=== PATIENT | female | born 1940 | race Caucasian/White ===

== ENCOUNTER 2016-09-29 21:18 | Inpatient (IN) | payer MEDICARE, OTHER ==
[~2016-09-29] VITALS: Ht 152.4 cm; Wt 83.9 kg
[~2016-09-29 21:18] MED LIST: ASPI-1063 PO; BENA40TA65 PO; GLIP2.5T3 PO; HYDR25TA4 PO; METO-442 PO; OMEP40CA33 PO; PIOG30TA26 PO; ROSU10TA PO; ROSU20TA PO; SITA50TA3 PO
[2016-09-29 21:58] VITALS: BP 157/85; PULSE 88; RESP 16; TEMP 97.2; O2SAT 95
[2016-09-29] MEDS ORDERED: NACL 0.9% 1,000 ML IV ONE (21:59)
[2016-09-29 22:12] LABS: BASOPHILS % (AUTO) 0.3 % (0.0-2.0); EOSINOPHILS # (AUTO) 0.4 K/uL (0.0-0.4); EOSINOPHILS % (AUTO) 3.8 % (0.0-4.0); HEMATOCRIT 25.7 % (36-48); HEMOGLOBIN 8.5 g/dL (12.0-16.0); LYMPHOCYTES # (AUTO) 1.8 K/uL (1.0-5.5); LYMPHOCYTES % (AUTO) 16.7 % (20.5-51.5); MEAN CORPUSCULAR HEMOGLOBIN 31 pg (27-31); MEAN CORPUSCULAR HGB CONC 33 % (32-36); MEAN CORPUSCULAR VOLUME 93 fL (79.0-98.0); MONOCYTES # (AUTO) 0.9 K/uL (0.0-1.0); MONOCYTES % (AUTO) 7.9 % (1.7-9.3); NEUTROPHILS # (AUTO) 7.8 K/uL (1.8-7.7); NEUTROPHILS % (AUTO) 71.3 % (40.0-70.0); PLATELET COUNT (AUTO) 237 K/uL (130-430); RED BLOOD CELL COUNT(AUTO) 2.78 MIL/uL (4.2-6.2); RED CELL DISTRIBUTION WIDTH 14.6 % (9.0-15.0); WHITE BLOOD COUNT (AUTO) 10.9 K/uL (4.8-10.8)
[2016-09-29 22:59] LABS: ANION GAP 8 (5-15); CALCIUM 8.5 mg/dL (8.4-11.0); CHLORIDE 107 mmol/L (98-107); GLUCOSE 108 mg/dL (70-99); POTASSIUM 4.1 mmol/L (3.5-5.1); SODIUM SERUM 140 mmol/L (136-145)
[2016-09-29 23:00] LABS: ALANINE AMINOTRANSFERASE 183 U/L (12-78); ALBUMIN 2.7 g/dL (3.4-4.8); ASPARTATE AMINOTRANSFERASE 56 U/L (10-37); CREATININE 1.77 mg/dL (0.55-1.30); TOTAL BILIRUBIN 0.5 mg/dL (0.0-1.0); TOTAL PROTEIN, SERUM 6.8 g/dL (6.4-8.3); UREA NITROGEN, BLOOD 23 mg/dL (8-21)
[2016-09-29] MEDS ORDERED: IPRATROPIUM/ALBUTEROL SULFATE 3 ML AMPUL.NEB INH ONE (23:00)
[2016-09-29 23:01] LABS: AMYLASE 183 U/L (0-100)
[2016-09-29 23:06] LABS: LIPASE 3205 U/L (73-393)
[2016-09-30] VITALS (7 sets, daily range): BP systolic 139–151; BP diastolic 52–80; PULSE 72–82; RESP 11–19; TEMP 97.4–98.6; O2SAT 94–99
[2016-09-30] MEDS ORDERED: ALBUTEROL SULFATE 0.083% 2.5 MG/3 ML VIAL.NEB INH PRN (00:15)
[2016-09-30] MEDS ORDERED: FUROSEMIDE 40 MG/4 ML VIAL IVP ONE (00:15)
[2016-09-30 07:11] LABS: BASOPHILS % (AUTO) 0.4 % (0.0-2.0); EOSINOPHILS # (AUTO) 0.4 K/uL (0.0-0.4); EOSINOPHILS % (AUTO) 3.9 % (0.0-4.0); HEMATOCRIT 24.1 % (36-48); HEMOGLOBIN 8.1 g/dL (12.0-16.0); LYMPHOCYTES # (AUTO) 1.8 K/uL (1.0-5.5); LYMPHOCYTES % (AUTO) 17.6 % (20.5-51.5); MEAN CORPUSCULAR HEMOGLOBIN 31 pg (27-31); MEAN CORPUSCULAR HGB CONC 34 % (32-36); MEAN CORPUSCULAR VOLUME 93 fL (79.0-98.0); MONOCYTES # (AUTO) 0.9 K/uL (0.0-1.0); NEUTROPHILS # (AUTO) 6.9 K/uL (1.8-7.7); NEUTROPHILS % (AUTO) 69.1 % (40.0-70.0); PLATELET COUNT (AUTO) 219 K/uL (130-430); RED CELL DISTRIBUTION WIDTH 14.7 % (9.0-15.0)
[2016-09-30 07:45] LABS: ANION GAP 7 (5-15); CALCIUM 8.6 mg/dL (8.4-11.0); CHLORIDE 107 mmol/L (98-107); CREATININE 1.57 mg/dL (0.55-1.30); GLUCOSE 109 mg/dL (70-99); POTASSIUM 3.9 mmol/L (3.5-5.1); SODIUM SERUM 140 mmol/L (136-145); UREA NITROGEN, BLOOD 22 mg/dL (8-21)
[2016-09-30] MEDS: CARVEDILOL 6.25 MG TABLET (COREG) PO SCH ×2 (08:50→21:55)
[2016-09-30] MEDS: FUROSEMIDE 20 MG/2 ML VIAL IVP SCH ×2 (08:51→21:56)
[2016-09-30] MEDS ORDERED: BENAZEPRIL HCL 10 MG TABLET (LOTENSIN) PO ONE (10:45)
[2016-09-30] MEDS: INSULIN REGULAR, HUMAN 100 UNITS/ML, 10 ML VIAL (novoLIN R) SUBCUT PRN (11:39)
[2016-09-30] MEDS ORDERED: LEVOFLOXACIN 500 MG/D5W 100 ML IV ONE (17:00)
[2016-09-30] MEDS ORDERED: ATORVASTATIN 20 MG TABLET PO ONE (17:15)
[2016-09-30] MEDS: cefTRIAXone 1 GM in D5W 50 ML IV SCH (19:25)
[2016-09-30] MEDS ORDERED: ROSUVASTATIN CALCIUM 5 MG/TAB (CRESTOR) PO SCH ×2 (21:00)
[2016-10-01] VITALS (7 sets, daily range): BP systolic 135–159; BP diastolic 63–78; PULSE 69–85; RESP 16–21; TEMP 96.8–98.6; O2SAT 94–96
[2016-10-01 06:41] LABS: BASOPHILS % (AUTO) 0.3 % (0.0-2.0); EOSINOPHILS # (AUTO) 0.4 K/uL (0.0-0.4); EOSINOPHILS % (AUTO) 3.4 % (0.0-4.0); HEMATOCRIT 25.5 % (36-48); HEMOGLOBIN 8.5 g/dL (12.0-16.0); LYMPHOCYTES # (AUTO) 2.2 K/uL (1.0-5.5); LYMPHOCYTES % (AUTO) 18.3 % (20.5-51.5); MEAN CORPUSCULAR HEMOGLOBIN 30 pg (27-31); MEAN CORPUSCULAR HGB CONC 33 % (32-36); MEAN CORPUSCULAR VOLUME 91 fL (79.0-98.0); MONOCYTES # (AUTO) 0.7 K/uL (0.0-1.0); MONOCYTES % (AUTO) 6.1 % (1.7-9.3); NEUTROPHILS # (AUTO) 8.5 K/uL (1.8-7.7); NEUTROPHILS % (AUTO) 71.9 % (40.0-70.0); PLATELET COUNT (AUTO) 273 K/uL (130-430); RED BLOOD CELL COUNT(AUTO) 2.81 MIL/uL (4.2-6.2); RED CELL DISTRIBUTION WIDTH 14.4 % (9.0-15.0); WHITE BLOOD COUNT (AUTO) 11.8 K/uL (4.8-10.8)
[2016-10-01 07:12] LABS: ALANINE AMINOTRANSFERASE 123 U/L (12-78); ALBUMIN 2.6 g/dL (3.4-4.8); ANION GAP 8 (5-15); ASPARTATE AMINOTRANSFERASE 35 U/L (10-37); CALCIUM 8.6 mg/dL (8.4-11.0); CHLORIDE 104 mmol/L (98-107); CHOLESTEROL 170 mg/dL (<200); CREATININE 1.63 mg/dL (0.55-1.30); GLUCOSE 121 mg/dL (70-99); HDL CHOLESTEROL 32 mg/dL (>55); LDL CHOLESTEROL 118 mg/dL (<100); LIPASE 1169 U/L (73-393); POTASSIUM 3.4 mmol/L (3.5-5.1); SODIUM SERUM 139 mmol/L (136-145); THYROID STIMULATING HORMONE 1.88 uIu/mL (0.34-4.82); TOTAL BILIRUBIN 0.5 mg/dL (0.0-1.0); TOTAL PROTEIN, SERUM 6.8 g/dL (6.4-8.3); TRIGLYCERIDES 145 mg/dL (30-150); UREA NITROGEN, BLOOD 25 mg/dL (8-21)
[2016-10-01] MEDS: CARVEDILOL 6.25 MG TABLET (COREG) PO SCH ×2 (08:13→23:11)
[2016-10-01] MEDS: glipiZIDE XL 2.5 MG/TAB (GLUCOTROL XL) PO SCH (08:13)
[2016-10-01] MEDS: ASPIRIN 81 MG TABLET(ECOTRIN) PO SCH (08:13)
[2016-10-01] MEDS: OMEPRAZOLE 20 MG CAPSULE.DR (PriLOSEC) PO SCH (08:14)
[2016-10-01] MEDS: ATORVASTATIN 20 MG TABLET PO SCH (08:14)
[2016-10-01] MEDS: BENAZEPRIL HCL 20 MG TABLET (LOTENSIN) PO SCH (08:14)
[2016-10-01] MEDS: FUROSEMIDE 20 MG/2 ML VIAL IVP SCH ×2 (08:15→23:10)
[2016-10-01] MEDS ORDERED: BENAZEPRIL HCL 10 MG TABLET (LOTENSIN) PO SCH (09:00)
[2016-10-01] MEDS ORDERED: METOPROLOL TARTRATE 50 MG TABLET PO SCH (09:00)
[2016-10-01] MEDS: INSULIN REGULAR, HUMAN 100 UNITS/ML, 10 ML VIAL (novoLIN R) SUBCUT PRN (12:52)
[2016-10-01] MEDS ORDERED: DOCUSATE SODIUM 250 MG CAPSULE PO ONE (13:15)
[2016-10-01] MEDS ORDERED: BISACODYL 5 MG TABLET.DR (DULCOLAX) PO ONE (13:15)
[2016-10-01] MEDS ORDERED: POTASSIUM CHLORIDE 20 MEQ TAB.PRT.SR PO ONE (13:15)
[2016-10-01] MEDS: cefTRIAXone 1 GM in D5W 50 ML IV SCH (17:20)
[2016-10-01] MEDS: DOCUSATE SODIUM 250 MG CAPSULE PO SCH (23:10)
[2016-10-02 04:52] VITALS: BP 136/59; PULSE 75; RESP 18; TEMP 97.4; O2SAT 95
[2016-10-02 07:50] VITALS: BP 135/55; PULSE 72; RESP 16; TEMP 96.8; O2SAT 94
[2016-10-02] MEDS: BENAZEPRIL HCL 20 MG TABLET (LOTENSIN) PO SCH (09:01)
[2016-10-02] MEDS: FUROSEMIDE 20 MG/2 ML VIAL IVP SCH (09:01)
[2016-10-02] MEDS: ATORVASTATIN 20 MG TABLET PO SCH (09:02)
[2016-10-02] MEDS: ASPIRIN 81 MG TABLET(ECOTRIN) PO SCH (09:02)
[2016-10-02] MEDS: CARVEDILOL 6.25 MG TABLET (COREG) PO SCH ×2 (09:02→21:55)
[2016-10-02] MEDS: OMEPRAZOLE 20 MG CAPSULE.DR (PriLOSEC) PO SCH (09:02)
[2016-10-02] MEDS: glipiZIDE XL 2.5 MG/TAB (GLUCOTROL XL) PO SCH (09:03)
[2016-10-02] MEDS: DOCUSATE SODIUM 250 MG CAPSULE PO SCH ×2 (09:03→21:54)
[2016-10-02 12:50] VITALS: BP 147/87; PULSE 75; RESP 16; TEMP 97.6; O2SAT 96
[2016-10-02 15:41] VITALS: Ht 152.4 cm; Wt 83.9 kg
[2016-10-02 16:31] VITALS: BP 131/71; PULSE 68; RESP 16; TEMP 97.6; O2SAT 96
[2016-10-02 17:24] LABS: BASOPHILS # (AUTO) 0.1 K/uL (0.0-0.2); BASOPHILS % (AUTO) 1.3 % (0.0-2.0); EOSINOPHILS # (AUTO) 0.3 K/uL (0.0-0.4); EOSINOPHILS % (AUTO) 2.7 % (0.0-4.0); HEMATOCRIT 26.5 % (36-48); HEMOGLOBIN 8.6 g/dL (12.0-16.0); LYMPHOCYTES # (AUTO) 2.6 K/uL (1.0-5.5); LYMPHOCYTES % (AUTO) 23.7 % (20.5-51.5); MEAN CORPUSCULAR HEMOGLOBIN 30 pg (27-31); MEAN CORPUSCULAR HGB CONC 33 % (32-36); MEAN CORPUSCULAR VOLUME 92 fL (79.0-98.0); NEUTROPHILS # (AUTO) 7.1 K/uL (1.8-7.7); NEUTROPHILS % (AUTO) 63.3 % (40.0-70.0); PLATELET COUNT (AUTO) 324 K/uL (130-430); RED BLOOD CELL COUNT(AUTO) 2.87 MIL/uL (4.2-6.2); RED CELL DISTRIBUTION WIDTH 14.7 % (9.0-15.0); WHITE BLOOD COUNT (AUTO) 11.1 K/uL (4.8-10.8)
[2016-10-02 17:28] LABS: ANION GAP 8 (5-15); CALCIUM 8.2 mg/dL (8.4-11.0); CHLORIDE 106 mmol/L (98-107); GLUCOSE 122 mg/dL (70-99); POTASSIUM 4.3 mmol/L (3.5-5.1); SODIUM SERUM 141 mmol/L (136-145); UREA NITROGEN, BLOOD 39 mg/dL (8-21)
[2016-10-02 17:33] LABS: ALANINE AMINOTRANSFERASE 83 U/L (12-78); ALBUMIN 2.7 g/dL (3.4-4.8); ASPARTATE AMINOTRANSFERASE 25 U/L (10-37); LIPASE 2119 U/L (73-393); TOTAL BILIRUBIN 0.3 mg/dL (0.0-1.0); TOTAL PROTEIN, SERUM 6.9 g/dL (6.4-8.3)
[2016-10-02] MEDS: cefTRIAXone 1 GM in D5W 50 ML IV SCH (19:05)
[2016-10-02 20:37] VITALS: BP 132/68; PULSE 72; RESP 18; TEMP 97.5; O2SAT 95
[2016-10-02] MEDS: FUROSEMIDE 20 MG TABLET PO SCH (21:55)
[2016-10-02 23:42] VITALS: BP 128/52; PULSE 73; RESP 20; TEMP 97.8; O2SAT 96
[2016-10-03 03:44] VITALS: BP 144/93; PULSE 69; RESP 20; TEMP 97.8; O2SAT 96
[2016-10-03 08:28] LABS: ALANINE AMINOTRANSFERASE 74 U/L (12-78); ALBUMIN 2.8 g/dL (3.4-4.8); ANION GAP 10 (5-15); ASPARTATE AMINOTRANSFERASE 26 U/L (10-37); CALCIUM 8.4 mg/dL (8.4-11.0); CHLORIDE 106 mmol/L (98-107); CHOLESTEROL 154 mg/dL (<200); CREATININE 1.86 mg/dL (0.55-1.30); GLUCOSE 132 mg/dL (70-99); HDL CHOLESTEROL 31 mg/dL (>55); LDL CHOLESTEROL 98 mg/dL (<100); LIPASE 1630 U/L (73-393); POTASSIUM 4.1 mmol/L (3.5-5.1); SODIUM SERUM 141 mmol/L (136-145); TOTAL BILIRUBIN 0.3 mg/dL (0.0-1.0); TOTAL PROTEIN, SERUM 6.1 g/dL (6.4-8.3); TRIGLYCERIDES 157 mg/dL (30-150); UREA NITROGEN, BLOOD 40 mg/dL (8-21)
[2016-10-03] MEDS: glipiZIDE XL 2.5 MG/TAB (GLUCOTROL XL) PO SCH (09:17)
[2016-10-03] MEDS: DOCUSATE SODIUM 250 MG CAPSULE PO SCH (09:17)
[2016-10-03] MEDS: OMEPRAZOLE 20 MG CAPSULE.DR (PriLOSEC) PO SCH (09:17)
[2016-10-03] MEDS: BENAZEPRIL HCL 20 MG TABLET (LOTENSIN) PO SCH (09:18)
[2016-10-03] MEDS: ATORVASTATIN 20 MG TABLET PO SCH (09:18)
[2016-10-03] MEDS: CARVEDILOL 6.25 MG TABLET (COREG) PO SCH (09:19)
[2016-10-03] MEDS: FUROSEMIDE 20 MG TABLET PO SCH (09:20)
[2016-10-03 10:04] LABS: BASOPHILS # (AUTO) 0.2 K/uL (0.0-0.2); BASOPHILS % (AUTO) 1.4 % (0.0-2.0); EOSINOPHILS # (AUTO) 0.4 K/uL (0.0-0.4); EOSINOPHILS % (AUTO) 3.7 % (0.0-4.0); HEMOGLOBIN 9.1 g/dL (12.0-16.0); LYMPHOCYTES # (AUTO) 2.3 K/uL (1.0-5.5); LYMPHOCYTES % (AUTO) 21.1 % (20.5-51.5); MEAN CORPUSCULAR HEMOGLOBIN 30 pg (27-31); MEAN CORPUSCULAR HGB CONC 33 % (32-36); MEAN CORPUSCULAR VOLUME 93 fL (79.0-98.0); MONOCYTES # (AUTO) 0.5 K/uL (0.0-1.0); MONOCYTES % (AUTO) 4.9 % (1.7-9.3); NEUTROPHILS # (AUTO) 7.7 K/uL (1.8-7.7); NEUTROPHILS % (AUTO) 68.9 % (40.0-70.0); RED BLOOD CELL COUNT(AUTO) 3.01 MIL/uL (4.2-6.2); RED CELL DISTRIBUTION WIDTH 14.8 % (9.0-15.0); WHITE BLOOD COUNT (AUTO) 11.1 K/uL (4.8-10.8)
[2016-10-03 10:16] LABS: PLATELET COUNT (AUTO) 359 K/uL (130-430)
[2016-10-03] MEDS ORDERED: FURO-150 PO (11:42)
[2016-10-03 11:50] VITALS: BP 141/68; PULSE 70; RESP 16; TEMP 97.4; O2SAT 97
[2016-10-03] MEDS: INSULIN REGULAR, HUMAN 100 UNITS/ML, 10 ML VIAL (novoLIN R) SUBCUT PRN (11:54)
[2016-10-03 12:26] VITALS: BP 141/68; PULSE 70; RESP 16; TEMP 97.4; O2SAT 97
== END 2016-10-03 13:20 | disposition home health service (06) | DRG 144 ==
LOC: SED 21:18 → STU 09-30 00:01
PROVIDERS: ADMIT Internal Medicine; ATTEND Internal Medicine
DX: J20.9 Acute bronchitis, unspecified (principal); I50.33 Acute on chronic diastolic (congestive) heart failure; K85.90 Acute pancreatitis without necrosis or infection, unspecified; E44.0 Moderate protein-calorie malnutrition; N17.9 Acute kidney failure, unspecified; N18.4 Chronic kidney disease, stage 4 (severe); E11.21 Type 2 diabetes mellitus with diabetic nephropathy; D63.8 Anemia in other chronic diseases classified elsewhere; I13.0 Hypertensive heart and chronic kidney disease with heart failure and stage 1 through stage 4 chronic kidney disease, or unspecified chronic kidney disease; E11.22 Type 2 diabetes mellitus with diabetic chronic kidney disease; J45.901 Unspecified asthma with (acute) exacerbation; E78.5 Hyperlipidemia, unspecified; E66.9 Obesity, unspecified; E78.00 Pure hypercholesterolemia, unspecified; Z79.82 Long term (current) use of aspirin; Z68.36 Body mass index [BMI] 36.0-36.9, adult; Z79.899 Other long term (current) drug therapy; E87.6 Hypokalemia
CPT/HCPCS: 36415; 71010; 76705; 80048; 80053; 80061; 82150-TC; 82962; 83690-TC; 83880; 84443-TC; 84484; 85025; 85610-TC; 85730-TC; 87081; 92610-GN; 93005; 93306; 94640; 96360; 96361; 99285; J0696; J1815; J1940; J1956; J7030; J7050; J7060

== ENCOUNTER 2017-05-23 20:43 | Emergency (ER) | payer MEDICARE, OTHER ==
[~2017-05-23] VITALS: Ht 152.4 cm; Wt 80.7 kg
[~2017-05-23 20:43] MED LIST changes: +FURO-150 PO; -HYDR25TA4 PO; -PIOG30TA26 PO; -SITA50TA3 PO
[2017-05-23 20:57] VITALS: BP_SYST 160
[2017-05-23] MEDS ORDERED: MAG HYDROX/AL HYDROX/SIMETH 30 ML, BELLADONNA ALKALOIDS/PHENOBARB 10 ML, LIDOCAINE VISC... PO ONE ×6 (21:15)
[2017-05-23] MEDS ORDERED: ONDANSETRON HCL 4 MG/2 ML VIAL IVP ONE (21:15)
[2017-05-23] MEDS ORDERED: ASPIRIN 325 MG TABLET PO ONE (21:15)
[2017-05-23 21:22] LABS: BILIRUBIN,URINE NEGATIVE (NEGATIVE); CLARITY/URINE CLEAR (CLEAR); COLOR,URINE YELLOW (YELLOW); GLUCOSE,URINE NEGATIVE (NEGATIVE); KETONES,URINE NEGATIVE (NEGATIVE); LEUKOCYTE ESTERASE ,URINE NEGATIVE (NEGATIVE); NITRITE, URINE NEGATIVE (NEGATIVE); PROTEIN URINE 2+ (NEGATIVE); UROBILINOGEN,URINE 0.2 (0.2-1.0)
[2017-05-23 21:24] LABS: BLOOD, URINE TRACE (NEGATIVE)
[2017-05-23 21:34] LABS: BACTERIA,URINE RARE /HPF (None Seen); RBC,URINE NONE SEEN /HPF (0-3); WBC,URINE NONE SEEN /HPF (0-3)
[2017-05-23 21:36] LABS: MUCUS,URINE None Seen /LPF (None Seen); YEAST,URINE Few /HPF (None Seen)
[2017-05-23 21:56] LABS: ANION GAP 5 (5-15); CALCIUM 8.8 mg/dL (8.4-11.0); CHLORIDE 106 mmol/L (98-107); CREATININE 2.26 mg/dL (0.55-1.30); GLUCOSE 164 mg/dL (70-99); POTASSIUM 4.9 mmol/L (3.5-5.1); SODIUM SERUM 139 mmol/L (136-145); UREA NITROGEN, BLOOD 44 mg/dL (8-21)
[2017-05-23 22:00] LABS: ALBUMIN 3.2 g/dL (3.4-4.8); AMYLASE 63 U/L (0-100); ASPARTATE AMINOTRANSFERASE 15 U/L (10-37); LIPASE 223 U/L (73-393); PROTHROMBIN TIME 10.9 SECS (9.5-12.5); TOTAL BILIRUBIN 0.2 mg/dL (0.0-1.0)
[2017-05-23 22:02] LABS: BASOPHILS % (AUTO) 0.3 % (0.0-2.0); EOSINOPHILS # (AUTO) 0.2 K/uL (0.0-0.4); EOSINOPHILS % (AUTO) 1.5 % (0.0-4.0); HEMATOCRIT 29.1 % (36-48); HEMOGLOBIN 9.6 g/dL (12.0-16.0); LYMPHOCYTES % (AUTO) 14.3 % (20.5-51.5); MEAN CORPUSCULAR HEMOGLOBIN 30 pg (27-31); MEAN CORPUSCULAR HGB CONC 33 % (32-36); MEAN CORPUSCULAR VOLUME 92 fL (79.0-98.0); MONOCYTES # (AUTO) 0.6 K/uL (0.0-1.0); MONOCYTES % (AUTO) 4.6 % (1.7-9.3); NEUTROPHILS % (AUTO) 79.3 % (40.0-70.0); PLATELET COUNT (AUTO) 259 K/uL (130-430); RED BLOOD CELL COUNT(AUTO) 3.17 MIL/uL (4.2-6.2); RED CELL DISTRIBUTION WIDTH 13.4 % (9.0-15.0); WHITE BLOOD COUNT (AUTO) 13.8 K/uL (4.8-10.8)
[2017-05-23 22:17] LABS: ALANINE AMINOTRANSFERASE 17 U/L (12-78)
[2017-05-23] MEDS ORDERED: MORPHINE 4 MG/ML INJ. SYRINGE IVP ONE (22:30)
[2017-05-24] MEDS ORDERED: MORPHINE 4 MG/ML INJ. SYRINGE IVP ONE (00:45)
[2017-05-24 00:50] VITALS: BP_SYST 149
== END 2017-05-24 00:50 | disposition home or self-care (01) ==
LOC: SED 20:43
DX: R10.13 Epigastric pain (principal); K81.9 Cholecystitis, unspecified; E11.9 Type 2 diabetes mellitus without complications; I10 Essential (primary) hypertension; E66.9 Obesity, unspecified; E07.9 Disorder of thyroid, unspecified; J44.9 Chronic obstructive pulmonary disease, unspecified; E78.00 Pure hypercholesterolemia, unspecified; Z79.82 Long term (current) use of aspirin; Z79.899 Other long term (current) drug therapy
CPT/HCPCS: 36415; 74176; 80053; 81000; 82150; 82550; 83690; 84484; 85025; 85610; 85730; 87086; 93005; 96374; 96375; 96376; 99285; J2001; J2270 ×2; J2405

== ENCOUNTER 2017-06-07 13:56 | Inpatient (IN) | payer OTHER, MEDICARE ==
[~2017-06-07] VITALS: Ht 152.4 cm; Wt 79.8 kg
[2017-06-07 13:56] VITALS: BP_SYST 105
--- NOTE | 2017-06-07 13:56 | NUR ---
Placed in room 06. Placed on liturgical music director, blood pressure machine and pulse oximeter. To gown for exam. Side rails up.
--- NOTE | 2017-06-07 14:08 | NUR ---
Pt vomiting, possible vagal response. HR went from [address] Pace at bedside. Verbal order recieved for 8mg zofran IV. Will medicate.
--- NOTE | 2017-06-07 14:14 | NUR ---
Medicated for vomiting.
[2017-06-07] MEDS ORDERED: ONDANSETRON HCL 4 MG/2 ML VIAL ONE (14:19)
--- NOTE | 2017-06-07 14:26 | NUR ---
PER FAMILY, PT HAS HAD TWO RECENT ADMISSIONS TO HOSPITAL FOR GALLSTONES/PANCREATITIS. +NAUSEA AND VOMITING WITH EPIGASTRIC PAINS. FAMILY VERY INVOLVED IN PTS CARE. DAUGHTER STATES THAT HER PAIN/NAUSEA IS CAUSED BY ONE OF THE MEDICATIONS SHE IS TAKING.
[2017-06-07] MEDS ORDERED: NACL 0.9% 1,000 ML IV ONE ×3 (14:30→16:15)
[2017-06-07] MEDS ORDERED: METOCLOPRAMIDE HCL 10 MG/2 ML VIAL IVP ONE (14:30)
[2017-06-07] MEDS ORDERED: HYDROmorphone 1 MG INJ. 1 MG/ML AMPUL IVP ONE ×2 (14:30→16:15)
[2017-06-07 14:47] LABS: BASOPHILS % (AUTO) 0.2 % (0.0-2.0); EOSINOPHILS # (AUTO) 0.1 K/uL (0.0-0.4); HEMATOCRIT 30.5 % (36-48); HEMOGLOBIN 10.1 g/dL (12.0-16.0); LYMPHOCYTES # (AUTO) 1.3 K/uL (1.0-5.5); LYMPHOCYTES % (AUTO) 11.9 % (20.5-51.5); MEAN CORPUSCULAR HEMOGLOBIN 30 pg (27-31); MEAN CORPUSCULAR HGB CONC 33 % (32-36); MEAN CORPUSCULAR VOLUME 91 fL (79.0-98.0); MONOCYTES # (AUTO) 0.1 K/uL (0.0-1.0); MONOCYTES % (AUTO) 0.6 % (1.7-9.3); NEUTROPHILS # (AUTO) 9.6 K/uL (1.8-7.7); NEUTROPHILS % (AUTO) 86.3 % (40.0-70.0); PLATELET COUNT (AUTO) 311 K/uL (130-430); RED BLOOD CELL COUNT(AUTO) 3.34 MIL/uL (4.2-6.2); RED CELL DISTRIBUTION WIDTH 12.7 % (9.0-15.0); WHITE BLOOD COUNT (AUTO) 11.1 K/uL (4.8-10.8)
[2017-06-07 14:57] LABS: ANION GAP 8 (5-15); CALCIUM 8.9 mg/dL (8.4-11.0); CHLORIDE 109 mmol/L (98-107); CREATININE 2.54 mg/dL (0.55-1.30); GLUCOSE 137 mg/dL (70-99); POTASSIUM 4.6 mmol/L (3.5-5.1); SODIUM SERUM 139 mmol/L (136-145); UREA NITROGEN, BLOOD 56 mg/dL (8-21)
--- NOTE | 2017-06-07 15:01 | NUR ---
recieved report from JOSE Vasques. Will assume care.
[2017-06-07 15:19] LABS: ALANINE AMINOTRANSFERASE 76 U/L (12-78); ALBUMIN 3.1 g/dL (3.4-4.8); ASPARTATE AMINOTRANSFERASE 98 U/L (10-37); TOTAL BILIRUBIN 0.7 mg/dL (0.0-1.0)
[2017-06-07] MEDS ORDERED: ONDANSETRON HCL 4 MG/2 ML VIAL IVP ONE (16:15)
[2017-06-07] MEDS ORDERED: PIPERACILLIN/TAZO 3.375 GM in NS 50 ML IV ONE (16:15)
[2017-06-07] MEDS ORDERED: VANCOMYCIN HCL 1,000 MG in NS 250 ML IV ONE (16:15)
[2017-06-07 16:16] LABS: LIPASE > 45000 U/L (73-393)
[2017-06-07] MEDS ORDERED: VANCOMYCIN HCL 1000 MG/VIAL IV ONE (16:28)
[2017-06-07] MEDS ORDERED: PIPERACILLIN/TAZOBACTAM 3.375 GM/VIAL (ZOSYN) IV ONE (16:28)
[2017-06-07] MEDS ORDERED: TYC3 PO (16:44)
[2017-06-07] MEDS ORDERED: OMEP20CA10 PO (16:44)
[2017-06-07] MEDS ORDERED: ATOR40TA68 PO (16:44)
[2017-06-07] MEDS ORDERED: ONDA4TAB5 PO (16:44)
[2017-06-07] MEDS ORDERED: FURO-150 PO (16:44)
[2017-06-07] MEDS ORDERED: COR12.5 PO (16:50)
--- NOTE | 2017-06-07 17:00 | NUR ---
Medication reconciliation completed with information provided by PATIENT. Any prior medication reconciliation on file was reviewed and corrected.
[2017-06-07] MEDS ORDERED: DEXTROSE 50% JECT 50 ML DISP.SYRIN IVP PRN (17:30)
--- NOTE | 2017-06-07 17:35 | NUR ---
ADMISSION NOTE Received patient from ER via gurney. Patient admitted with diagnosis of pancreatitis. Patient is awake, alert, oriented X 3. Patient oriented to hospital room, call light, toileting, pain management and safety-teach back done. Patient informed that Esther will be her nurse and that their room number is 123A. Personal belongings checked and Belongings List documented. Call light within reach.
--- NOTE | 2017-06-07 17:41 | NUR ---
GI CONSULT CALLED TO DR CHAPA, RE; PANCREATITIS. SPOKE TO JANIA
--- NOTE | 2017-06-07 17:44 | NUR ---
Patient will be admitted to care of. Admitted to TELEMETRY unit. Will go to room 135. Belongings list completed, BELONGINGS SENT WITH FAMILY. Summary report printed. Report will be given at bedside.
[2017-06-07] MEDS ORDERED: ACETAMINOPHEN 325 MG TABLET PO PRN (17:45)
[2017-06-07] MEDS: PANTOPRAZOLE SODIUM 40 MG/VIAL (PROTONIX) IVP SCH ×3 (18:30→21:56)
[2017-06-07] MEDS: 0.45% NACL 1,000 ML IV SCH ×2 (19:00→22:03)
[2017-06-07] MEDS ORDERED: cefTRIAXone 1 GM in D5W 50 ML IV SCH (19:00)
[2017-06-07 19:32] LABS: BILIRUBIN,URINE NEGATIVE (NEGATIVE); BLOOD, URINE NEGATIVE (NEGATIVE); CLARITY/URINE CLOUDY (CLEAR); COLOR,URINE YELLOW (YELLOW); GLUCOSE,URINE NEGATIVE (NEGATIVE); KETONES,URINE NEGATIVE (NEGATIVE); LEUKOCYTE ESTERASE ,URINE NEGATIVE (NEGATIVE); NITRITE, URINE NEGATIVE (NEGATIVE); PH,URINE 5.5 (5.0-8.0); PROTEIN URINE 2+ (NEGATIVE)
[2017-06-07 19:46] LABS: BACTERIA,URINE FEW /HPF (None Seen); RBC,URINE 0-3 /HPF (0-3); WBC,URINE 0-3 /HPF (0-3)
[2017-06-07 19:47] LABS: MUCUS,URINE None Seen /LPF (None Seen); URINE AMORPHOUS URATE 3+ /HPF (None Seen)
[2017-06-07 20:00] VITALS: BP_SYST 92
[2017-06-07 20:30] VITALS: BP_SYST 127
[2017-06-07 21:00] VITALS: BP_SYST 96
[2017-06-07] MEDS: CARVEDILOL 12.5 MG TABLET (COREG) PO SCH (21:00)
[2017-06-07 22:00] VITALS: BP_SYST 100
[2017-06-07 23:00] VITALS: BP_SYST 97
[2017-06-07] MEDS: D5/0.45 NS 1,000 ML IV SCH (23:32)
[2017-06-08] VITALS (24 sets, daily range): BP systolic 71–139
[2017-06-08] MEDS: D5/0.45 NS 1,000 ML IV SCH ×3 (05:14→22:39)
[2017-06-08] MEDS ORDERED: DOPamine PREMIX 250 ML IV ONE ×2 (05:20→14:44)
[2017-06-08] MEDS: DOPamine PREMIX 250 ML IV PRN ×2 (05:27→21:31)
[2017-06-08] MEDS: HYDROmorphone 1 MG INJ. 1 MG/ML AMPUL IVP PRN ×4 (05:42→22:37)
[2017-06-08 06:29] LABS: HEMOGLOBIN 8.6 g/dL (12.0-16.0)
[2017-06-08] MEDS: ONDANSETRON HCL 4 MG/2 ML VIAL IVP PRN ×3 (06:34→21:52)
[2017-06-08 06:41] LABS: ALANINE AMINOTRANSFERASE 189 U/L (12-78); ALBUMIN 2.3 g/dL (3.4-4.8); ANION GAP 9 (5-15); ASPARTATE AMINOTRANSFERASE 231 U/L (10-37); BILIRUBIN,DIRECT 1.3 mg/dL (0.0-0.3); CALCIUM 7.2 mg/dL (8.4-11.0); CHLORIDE 113 mmol/L (98-107); CHOLESTEROL 111 mg/dL (<200); CREATININE 2.73 mg/dL (0.55-1.30); GLUCOSE 243 mg/dL (70-99); HDL CHOLESTEROL 30 mg/dL (>55); LDL CHOLESTEROL 73 mg/dL (<100); POTASSIUM 4.4 mmol/L (3.5-5.1); SODIUM SERUM 139 mmol/L (136-145); TOTAL BILIRUBIN 1.5 mg/dL (0.0-1.0); TRIGLYCERIDES 80 mg/dL (30-150); UREA NITROGEN, BLOOD 51 mg/dL (8-21)
[2017-06-08 06:54] LABS: MEAN CORPUSCULAR HEMOGLOBIN 30 pg (27-31); MEAN CORPUSCULAR HGB CONC 33 % (32-36); MEAN CORPUSCULAR VOLUME 92 fL (79.0-98.0); PLATELET COUNT (AUTO) 273 K/uL (130-430); RED BLOOD CELL COUNT(AUTO) 2.82 MIL/uL (4.2-6.2); RED CELL DISTRIBUTION WIDTH 13.4 % (9.0-15.0)
[2017-06-08] MEDS: INSULIN REGULAR, HUMAN 100 UNITS/ML, 10 ML VIAL (novoLIN R) SUBCUT PRN ×3 (06:58→21:58)
[2017-06-08 07:19] LABS: WHITE BLOOD COUNT (AUTO) 32.3 K/uL (4.8-10.8)
[2017-06-08 07:26] LABS: LIPASE 18137 U/L (73-393)
--- NOTE | 2017-06-08 07:30 | NUR ---
AM ROUNDS RECEIVED PT UP IN BED. AWAKE, ALERT, ORIENTED X3, REORIENTED TO DATE. BREATHING IS EVEN AND UNLABORED ON RA. NO ACUTE DISTRESS. SINUS TACHY ON MONITOR. DOPAMINE DRIP RUNNING AT 10MCG/KG/MIN TO PIV. KEMAR 20 TO RFA WITH Y-SET. IVF ALSO INFUSING. NO REDNESS, NO SWELLING AT INSERTION SITE. ABD IS DISTENDED, BOWEL SOUNDS HYPOACTIVE. F/C DRAINING CLEAR EVON URINE TO GRAVITY. SCDS IN PLACE. PT IS ABLE TO MAKE NEEDS KNOWN. ENCOURAGED PT TO CALL ME WITH ANY NEEDS
--- NOTE | 2017-06-08 08:40 | NUR ---
MD HERE DR CHAPA HERE TO SEE PT. NEW ORDERS NOTED.
[2017-06-08] MEDS: CARVEDILOL 12.5 MG TABLET (COREG) PO SCH ×2 (09:00→21:00)
[2017-06-08] MEDS: ATORVASTATIN 20 MG TABLET PO SCH (09:00)
[2017-06-08] MEDS: ASPIRIN 81 MG TABLET(ECOTRIN) PO SCH (09:00)
[2017-06-08 09:15] LABS: BAND % (MANUAL) 23 % (0-6); BASOPHILS % (MANUAL) 0 % (0-2); EOSINOPHILS % (MANUAL) 0 % (0-7); LYMPHOCYTES % (MANUAL) 4 % (20-46); MONOCYTES % (MANUAL) 1 % (0-11)
--- NOTE | 2017-06-08 09:15 | NUR ---
RN ROUNDS ADMIN AM MED-PROTONIX IVP. PT IS NPO FOR PENDING TEST. PT SMITH WELL. PT ONLY HAS ONE PIV SITE. PT IS A HARD STICK. ATTEMPTED PIV TO LFAX2 -UNSUCCESSFUL X2. CALLED DR GIBBONS. NEW ORDER FOR PICC LINE
--- NOTE | 2017-06-08 09:40 | NUR ---
Nutrition Update Avery Scale 16 noted. Pt admitted for acute pancreatitis. Diet: clear liquid BMI: 34.4 kg/m2 RD to follow per nutrition care standards.
[2017-06-08] MEDS: PANTOPRAZOLE SODIUM 40 MG/VIAL (PROTONIX) IVP SCH ×2 (09:43→21:52)
--- NOTE | 2017-06-08 11:00 | NUR ---
LINNEA PT TO [facility] SCAN, ACCOMPANIED BY MYSELF ON PORTABLE TELE MONITOR.
[2017-06-08 12:20] LABS: TOTAL IRON BIND. CAPACITY 143 ug/dL (250-450)
--- NOTE | 2017-06-08 13:15 | NUR ---
PT RETURN PT BACK FROM [facility]. PT B/P DROPPED DURING SCAN. DOPAMINE WAS INCREASED. TEST WAS ENDED SINCE PT IS NOT HEMODYNAMICALLY STABLE. PT RETURNED SAFELY. CONT DOPAMINE DRIP TO SUPPORT B/P.
[2017-06-08] MEDS: PIPERACILLIN/TAZO 2.25G/DEX-IS 50 ML IV SCH ×2 (13:16→18:13)
[2017-06-08] MEDS: SOD FERRIC GLUC COMPLEX/SUC 125 MG in NS 100 ML IV SCH (14:00)
[2017-06-08 14:51] LABS: INR 1.3 (0.8-1.2); PROTHROMBIN TIME 14.3 SECS (9.5-12.5)
--- NOTE | 2017-06-08 15:10 | NUR ---
RN ROUNDS ADMIN MEDS ORDERED. NO ADVERSE REACTIONS NOTED. WARM BLANKETS PROVIDED. COMFORT MEASURES PROVIDED.
[2017-06-08] MEDS: metroNIDAZOLE 250 mg/NS 50 ML IV SCH (15:48)
--- NOTE | 2017-06-08 18:02 | NUR ---
RN ROUNDS ADMIN KAILEE MEDS. PT SMITH WELL. BS ASSESSED. VSS
--- NOTE | 2017-06-08 18:28 | NUR ---
CLOSING NOTE PT IS RESTING IN BED. SON AND DAUGHTER ARE AT BEDSIDE. ALL NEEDS ARE MET. WILL ENDORSE REPORT TO NOC SHIFT NURSE.
[2017-06-08 18:30] LABS: ALANINE AMINOTRANSFERASE 201 U/L (12-78); ALBUMIN 2.4 g/dL (3.4-4.8); ANION GAP 9 (5-15); ASPARTATE AMINOTRANSFERASE 178 U/L (10-37); CALCIUM 7.6 mg/dL (8.4-11.0); CHLORIDE 110 mmol/L (98-107); CREATININE 2.87 mg/dL (0.55-1.30); GLUCOSE 194 mg/dL (70-99); POTASSIUM 4.2 mmol/L (3.5-5.1); SODIUM SERUM 138 mmol/L (136-145); TOTAL BILIRUBIN 1.6 mg/dL (0.0-1.0)
[2017-06-08 18:39] LABS: UREA NITROGEN, BLOOD 46 mg/dL (8-21)
--- NOTE | 2017-06-08 20:00 | NUR ---
ASSESSMENT Pt alert/oriented to self, time and place. Pt non-Sami speaking. No O2 in use. Dopamine for BP support in use. IV 20ga right forearm, no redness or swelling noted @ site. Lilly cath in use. Pt awaiting for PICC line placement. Family @ bedside.
--- NOTE | 2017-06-08 22:00 | NUR ---
PAIN Pt c/o nausea and pain. Pt medicated for nausea and pain.
[2017-06-09] VITALS (25 sets, daily range): BP systolic 65–146
[2017-06-09] MEDS: metroNIDAZOLE 250 mg/NS 50 ML IV SCH ×4 (00:04→22:18)
--- NOTE | 2017-06-09 00:30 | NUR ---
PATIENT RESTING: Patient resting quietly. No acute distress noted. Vital signs within normal range.
[2017-06-09] MEDS: PIPERACILLIN/TAZO 2.25G/DEX-IS 50 ML IV SCH ×4 (00:50→17:11)
--- NOTE | 2017-06-09 02:00 | NUR ---
PATIENT RESTING: Patient resting quietly. No acute distress noted. Vital signs within normal range.
[2017-06-09] MEDS: ONDANSETRON HCL 4 MG/2 ML VIAL IVP PRN ×3 (05:16→21:28)
[2017-06-09] MEDS: HYDROmorphone 1 MG INJ. 1 MG/ML AMPUL IVP PRN ×2 (05:17→13:49)
--- NOTE | 2017-06-09 06:00 | NUR ---
ASSESSMENT Pt medicated for c/o abdominal pain. Pt resting quietly.
[2017-06-09] MEDS: D5/0.45 NS 1,000 ML IV SCH ×3 (06:35→16:00)
[2017-06-09 06:49] LABS: ALBUMIN 2.1 g/dL (3.4-4.8); BILIRUBIN,DIRECT 0.9 mg/dL (0.0-0.3)
--- NOTE | 2017-06-09 07:30 | NUR ---
AM Assessment Pt AAOx4, Polish speaking, pt's son at bedside for interpretation. Respirations even and unlabored. States no pain currently at rest. Skin warm and dry. PICC in ARMIN intact, patent with D5 1/2 NS @150 ml/hr, on dopamine drip 6 mcg/kg/min. IVSL on RFA intact, patent, no infiltration noted. Lilly catheter in place draining yellow urine. Heart sounds regular, afib on monitor, HR 70s. Adventitious lung sounds. Hypoactive bowel sounds, abdomen soft, distended, tender. Bed in lowest position. Call light in reach. Will continue to monitor.
--- NOTE | 2017-06-09 08:30 | NUR ---
Dr. Alvarado at bedside with patient.
[2017-06-09] MEDS: DOPamine PREMIX 250 ML IV PRN ×2 (08:41→21:09)
[2017-06-09] MEDS: ATORVASTATIN 20 MG TABLET PO SCH (09:05)
[2017-06-09] MEDS: ASPIRIN 81 MG TABLET(ECOTRIN) PO SCH (09:06)
[2017-06-09] MEDS: CARVEDILOL 12.5 MG TABLET (COREG) PO SCH ×2 (09:06→21:29)
[2017-06-09] MEDS: PANTOPRAZOLE SODIUM 40 MG/VIAL (PROTONIX) IVP SCH ×2 (09:07→21:28)
--- NOTE | 2017-06-09 09:30 | NUR ---
Dr. Villagran at bedside with patient
[2017-06-09 10:22] LABS: BASOPHILS % (AUTO) 0.1 % (0.0-2.0); EOSINOPHILS # (AUTO) 0.1 K/uL (0.0-0.4); EOSINOPHILS % (AUTO) 0.4 % (0.0-4.0); HEMATOCRIT 25.9 % (36-48); LYMPHOCYTES # (AUTO) 1.4 K/uL (1.0-5.5); MEAN CORPUSCULAR VOLUME 92 fL (79.0-98.0); MONOCYTES # (AUTO) 0.7 K/uL (0.0-1.0); NEUTROPHILS # (AUTO) 22.1 K/uL (1.8-7.7); RED BLOOD CELL COUNT(AUTO) 2.82 MIL/uL (4.2-6.2); WHITE BLOOD COUNT (AUTO) 24.3 K/uL (4.8-10.8)
[2017-06-09 10:28] LABS: ANION GAP 9 (5-15); CALCIUM 7.9 mg/dL (8.4-11.0); CHLORIDE 110 mmol/L (98-107); CREATININE 2.97 mg/dL (0.55-1.30); GLUCOSE 169 mg/dL (70-99); POTASSIUM 3.9 mmol/L (3.5-5.1); SODIUM SERUM 138 mmol/L (136-145); UREA NITROGEN, BLOOD 40 mg/dL (8-21)
[2017-06-09 10:32] LABS: HEMOGLOBIN 8.7 g/dL (12.0-16.0); LYMPHOCYTES % (AUTO) 5.6 % (20.5-51.5); MEAN CORPUSCULAR HEMOGLOBIN 31 pg (27-31); MEAN CORPUSCULAR HGB CONC 34 % (32-36); NEUTROPHILS % (AUTO) 90.9 % (40.0-70.0); PLATELET COUNT (AUTO) 236 K/uL (130-430); RED CELL DISTRIBUTION WIDTH 13.5 % (9.0-15.0)
[2017-06-09 10:45] LABS: ALANINE AMINOTRANSFERASE 143 U/L (12-78); ALBUMIN 2.1 g/dL (3.4-4.8); ASPARTATE AMINOTRANSFERASE 91 U/L (10-37); TOTAL BILIRUBIN 0.8 mg/dL (0.0-1.0)
[2017-06-09 11:03] LABS: LIPASE 4056 U/L (73-393)
--- NOTE | 2017-06-09 12:21 | NUR ---
Surgery consult called: for Chang Camacho, regarding cholecystitis, ordered by Dr. Vilalgran, spoke with Margot.
[2017-06-09] MEDS: INSULIN REGULAR, HUMAN 100 UNITS/ML, 10 ML VIAL (novoLIN R) SUBCUT PRN ×2 (13:05→22:05)
[2017-06-09] MEDS: SOD FERRIC GLUC COMPLEX/SUC 125 MG in NS 100 ML IV SCH (13:59)
--- NOTE | 2017-06-09 14:00 | NUR ---
Patient Round/Hygiene Pt c/o 05/11 abdominal pain and nausea and is dry heaving. Medicated with PRN medication per MD order. Provided CHG bath and changed linens. Will continue to monitor.
--- NOTE | 2017-06-09 14:08 | NUR ---
Cardiac consult called: for Dr. Chin (Dr. Tamayo is application analyst), regarding cardiac clearance, ordered by Dr. Villagran, spoke with Michelle.
--- NOTE | 2017-06-09 18:37 | NUR ---
Patient Round Pt noted with coughing and "feeling nauseous." No emesis made, only spit up. Auscultated lung sounds, heard minimal wheezing. Placed pt on 2L O2 via NC, tolerated well, stopped wheezing. Will continue to monitor.
--- NOTE | 2017-06-09 19:25 | NUR ---
Closing/Endorsement Pt resting in bed, states no pain currently, still on dopamine drip 14 mcg/kg/min and IVF. Pt on 2L O2 via NC, tolerating well, saturating at 97%. Endorsed plan of care to Catherine GARCIA via SBAR tool and bedside round.
--- NOTE | 2017-06-09 20:00 | NUR ---
ASSESSMENT Pt alert/oriented to self, time. Oxygen in use 2L/min nasal cannula. Pt O2 saturation 98%. Pt having slight twitching of left eye and left upper corner of mouth. No c/o abdominal pain or nausea. PICC line present left upper arm, dressing dry & intact. No redness or swelling noted @ site. Peripheral saline lock present right forearm, no redness or swelling noted @ site. Lilly cath in use draining yellow color urine. Skin intact, encouraged to turn Q 2Hr to prevent skin breakdown, Pt gave verbal understanding. SCD in use. Abdomen softly distended. No emesis noted. Family @ bedside.
--- NOTE | 2017-06-09 22:00 | NUR ---
PATIENT RESTING: Patient resting quietly. No acute distress noted. BP within normal range with Dopamine drip in use.
[2017-06-10] VITALS (23 sets, daily range): BP systolic 84–144
--- NOTE | 2017-06-10 | NUR ---
PATIENT RESTING: Patient resting quietly. No acute distress noted. BP within normal range, with Dopamine drip in use.
[2017-06-10] MEDS: PIPERACILLIN/TAZO 2.25G/DEX-IS 50 ML IV SCH ×5 (00:37→23:56)
--- NOTE | 2017-06-10 02:00 | NUR ---
PATIENT RESTING: Patient resting quietly. No acute distress noted.
[2017-06-10] MEDS: D5/0.45 NS 1,000 ML IV SCH ×4 (02:27→19:14)
[2017-06-10] MEDS: HYDROmorphone 1 MG INJ. 1 MG/ML AMPUL IVP PRN ×4 (03:02→16:58)
[2017-06-10 05:09] LABS: CERULOPLASMIN 30.6 mg/dL (19.0-39.0)
[2017-06-10] MEDS: metroNIDAZOLE 250 mg/NS 50 ML IV SCH ×3 (06:06→21:57)
[2017-06-10 06:20] LABS: BASOPHILS % (AUTO) 0.2 % (0.0-2.0); EOSINOPHILS # (AUTO) 0.3 K/uL (0.0-0.4); EOSINOPHILS % (AUTO) 1.6 % (0.0-4.0); HEMATOCRIT 24.4 % (36-48); HEMOGLOBIN 8.2 g/dL (12.0-16.0); LYMPHOCYTES # (AUTO) 1.3 K/uL (1.0-5.5); MEAN CORPUSCULAR HEMOGLOBIN 31 pg (27-31); MEAN CORPUSCULAR HGB CONC 34 % (32-36); MEAN CORPUSCULAR VOLUME 92 fL (79.0-98.0); MONOCYTES # (AUTO) 0.4 K/uL (0.0-1.0); MONOCYTES % (AUTO) 2.4 % (1.7-9.3); NEUTROPHILS # (AUTO) 16.5 K/uL (1.8-7.7); PLATELET COUNT (AUTO) 212 K/uL (130-430); RED BLOOD CELL COUNT(AUTO) 2.65 MIL/uL (4.2-6.2); RED CELL DISTRIBUTION WIDTH 13.5 % (9.0-15.0); WHITE BLOOD COUNT (AUTO) 18.5 K/uL (4.8-10.8)
--- NOTE | 2017-06-10 06:26 | NUR ---
PATIENT RESTING: Patient resting quietly. No acute distress noted. Patient repositioned by staff every 2 hours with pillow support.
[2017-06-10] MEDS: INSULIN REGULAR, HUMAN 100 UNITS/ML, 10 ML VIAL (novoLIN R) SUBCUT PRN ×3 (06:28→21:43)
[2017-06-10 06:39] LABS: ANION GAP 7 (5-15); CHLORIDE 113 mmol/L (98-107); CREATININE 2.68 mg/dL (0.55-1.30); GLUCOSE 178 mg/dL (70-99); POTASSIUM 3.8 mmol/L (3.5-5.1); SODIUM SERUM 139 mmol/L (136-145); UREA NITROGEN, BLOOD 34 mg/dL (8-21)
[2017-06-10 06:45] LABS: ALANINE AMINOTRANSFERASE 108 U/L (12-78); ALBUMIN 2.1 g/dL (3.4-4.8); ASPARTATE AMINOTRANSFERASE 47 U/L (10-37); BILIRUBIN,DIRECT 0.4 mg/dL (0.0-0.3); LIPASE 1859 U/L (73-393); TOTAL BILIRUBIN 0.5 mg/dL (0.0-1.0)
[2017-06-10] MEDS: DOPamine PREMIX 250 ML IV PRN ×2 (06:54→17:46)
--- NOTE | 2017-06-10 08:00 | NUR ---
ASSUMPTION OF CARE: RECEIEVED PT A/A/OX4, [place] SPEAKING WITH FAMILY MEMBERS AT BEDSIDE, DX:PAIN, R/T ACUTE PANCREATITIS, NO C/O PAIN AT THIS TIME, APPEARS CALM AND RELAXED, VSS, AFEBRILE, CURRENTLY ON DOPAMINE DRIP @7 MCG/KG/MIN, WITH STABLE BP, SB 54-57 ON MONITOR, BREATH SOUNDS ARE CLEAR, DIMINISHED IN LOWER BASES, BREATHING EASY, SATURATING 100% WHILE ON 2L VIA NC, COLOR IS GOOD, PULSES PALPABLE, IV SITE INTACT, PATENT, NO REDNESS OR SWELLING, ORIENTED TO UNIT, CALL LIGHT PLACED WITHIN REACH, WILL CONT' TO MONITOR AND ASSESS.
[2017-06-10 08:42] LABS: NEUTROPHILS % (AUTO) 88.8 % (40.0-70.0)
--- NOTE | 2017-06-10 09:00 | NUR ---
FILM CREW MEMBER: MORNING MEDS GIVEN, PER ORDERED BY Bruno, TOLERATED WELL, NO N/V NOTED, WILL CONT' WITH PLAN OF CARE.
--- NOTE | 2017-06-10 09:30 | NUR ---
PAIN: PT C/O /10 PAIN TO ABD, NON-RADIATING, MEDICATED WITH 0.5 MG DILAUDID IVP, WILL REASSESS IN 15-20 MINS.
[2017-06-10] MEDS: ASPIRIN 81 MG TABLET(ECOTRIN) PO SCH (09:31)
[2017-06-10] MEDS: ATORVASTATIN 20 MG TABLET PO SCH (09:31)
[2017-06-10] MEDS: PANTOPRAZOLE SODIUM 40 MG/VIAL (PROTONIX) IVP SCH ×2 (09:31→21:33)
[2017-06-10] MEDS: CARVEDILOL 12.5 MG TABLET (COREG) PO SCH ×2 (09:32→21:57)
--- NOTE | 2017-06-10 11:30 | NUR ---
GLUCOSE MONITORING: BLOOD SUGAR OEQBT=023, 2 UNITS REGULAR INSULIN COVERAGE GIVEN, TOLERATED WELL, WILL CONT' TO MONITOR AND ASSESS.
--- NOTE | 2017-06-10 13:30 | NUR ---
VISIT: AT BEDSIDE FOR ASSESSMENT OF PT, NO NEW ORDERS GIVEN, WILL CONT' WITH PLAN OF CARE.
[2017-06-10] MEDS: ONDANSETRON HCL 4 MG/2 ML VIAL IVP PRN ×2 (14:07→17:11)
[2017-06-10] MEDS: SOD FERRIC GLUC COMPLEX/SUC 125 MG in NS 100 ML IV SCH (14:09)
--- NOTE | 2017-06-10 15:30 | NUR ---
DOPAMINE DRIP: INCREASED TO 10MCG/KG/MIN FOR SBP OF 85/43, WILL CONT' TO MONITOR AND ASSESS.
--- NOTE | 2017-06-10 17:30 | NUR ---
GLUCOSE MONITORING: BLOOD SUGAR FLJOY=386, NO COVERAGE REQUIRED, WILL CONT' TO MONITOR AND ASSESS.
--- NOTE | 2017-06-10 23:10 | NUR ---
DOPAMINE TAPERED DOWN Dopamine titrated down to 10mcg/kg/min. Patient's BP at 141/72. HR at 72bpm. Will continue to monitor.
[2017-06-11] VITALS (24 sets, daily range): BP systolic 100–141
[2017-06-11] MEDS: HYDROmorphone 1 MG INJ. 1 MG/ML AMPUL IVP PRN ×3 (00:17→15:22)
[2017-06-11] MEDS: D5/0.45 NS 1,000 ML IV SCH ×3 (02:06→14:32)
[2017-06-11] MEDS: DOPamine PREMIX 250 ML IV PRN ×3 (02:07→21:43)
[2017-06-11] MEDS: ONDANSETRON HCL 4 MG/2 ML VIAL IVP PRN ×3 (06:10→21:08)
[2017-06-11] MEDS: metroNIDAZOLE 250 mg/NS 50 ML IV SCH ×3 (06:10→22:42)
[2017-06-11] MEDS: PIPERACILLIN/TAZO 2.25G/DEX-IS 50 ML IV SCH ×3 (06:10→17:35)
[2017-06-11] MEDS: INSULIN REGULAR, HUMAN 100 UNITS/ML, 10 ML VIAL (novoLIN R) SUBCUT PRN ×3 (06:42→22:51)
[2017-06-11 07:09] LABS: ALANINE AMINOTRANSFERASE 90 U/L (12-78); ALBUMIN 2.2 g/dL (3.4-4.8); ANION GAP 9 (5-15); ASPARTATE AMINOTRANSFERASE 28 U/L (10-37); CALCIUM 8.2 mg/dL (8.4-11.0); CHLORIDE 112 mmol/L (98-107); CREATININE 2.66 mg/dL (0.55-1.30); GLUCOSE 182 mg/dL (70-99); POTASSIUM 3.9 mmol/L (3.5-5.1); SODIUM SERUM 140 mmol/L (136-145); TOTAL BILIRUBIN 0.5 mg/dL (0.0-1.0); UREA NITROGEN, BLOOD 32 mg/dL (8-21)
--- NOTE | 2017-06-11 07:15 | NUR ---
ENDORSEMENT Patient endorsed to incoming nurse, Carla. Report given.
--- NOTE | 2017-06-11 07:20 | NUR ---
RECEIVED PATIENT ON BED ASLEEP.BREATHING EVEN AND UNLABORED WITH O2 AT 3L/M VIA NASAL CANNULA.NO SIGNS AND SYMPTOMS OF ACUTE DISTRESS.IVF INFUSING WELL;NO SIGNS AND SYMPTOMS OF INFILTRATION.ON DOPAMINE DRIP RUNNING AT 10 MCG;TOLERATING WELL.SAFETY AND FALL PRECAUTIONS IN PLACE.CALL LIGHT WITHIN REACH
[2017-06-11] MEDS: ASPIRIN 81 MG TABLET(ECOTRIN) PO SCH (08:04)
[2017-06-11] MEDS: CARVEDILOL 12.5 MG TABLET (COREG) PO SCH (08:04)
[2017-06-11] MEDS: ATORVASTATIN 20 MG TABLET PO SCH (08:04)
[2017-06-11] MEDS: PANTOPRAZOLE SODIUM 40 MG/VIAL (PROTONIX) IVP SCH ×2 (08:05→21:04)
--- NOTE | 2017-06-11 08:15 | NUR ---
BREAKFAST SERVED;ABLE TO CONSUME 25%;TOLERATED WELL
[2017-06-11 08:22] LABS: BASOPHILS % (AUTO) 0.1 % (0.0-2.0); EOSINOPHILS # (AUTO) 0.4 K/uL (0.0-0.4); EOSINOPHILS % (AUTO) 2.3 % (0.0-4.0); HEMATOCRIT 28.8 % (36-48); HEMOGLOBIN 9.2 g/dL (12.0-16.0); LYMPHOCYTES # (AUTO) 1.2 K/uL (1.0-5.5); MEAN CORPUSCULAR HEMOGLOBIN 30 pg (27-31); MEAN CORPUSCULAR HGB CONC 32 % (32-36); MEAN CORPUSCULAR VOLUME 93 fL (79.0-98.0); MONOCYTES # (AUTO) 0.4 K/uL (0.0-1.0); MONOCYTES % (AUTO) 2.5 % (1.7-9.3); NEUTROPHILS # (AUTO) 15.1 K/uL (1.8-7.7); PLATELET COUNT (AUTO) 246 K/uL (130-430); RED BLOOD CELL COUNT(AUTO) 3.11 MIL/uL (4.2-6.2); RED CELL DISTRIBUTION WIDTH 13.9 % (9.0-15.0); WHITE BLOOD COUNT (AUTO) 17.1 K/uL (4.8-10.8)
[2017-06-11 08:56] LABS: LIPASE 1194 U/L (73-393)
[2017-06-11 09:14] LABS: NEUTROPHILS % (AUTO) 88.1 % (40.0-70.0)
--- NOTE | 2017-06-11 11:00 | NUR ---
PATIENT ON BED AWAKE WITH LASHAWN KELLY AT BEDSIDE.BREATHING EVEN AND UNLABORED WITH O2 AT 2L/M VIA NASAL CANNULA.NO ACUTE DISTRESS.IVF INFUSING WELL;DOPAMINE RUNNING AT 8 MCG/KG/MIN;TOLERATING WELL;NO SIGNS AND SYMPTOMS OF INFILTRATION.SAFETY AND FALL PRECAUTIONS IN PLACE.CALL LIGHT WITHIN REACH.ENDORSED ALL CARE TO YUNIEL GARCIA
--- NOTE | 2017-06-11 11:06 | NUR ---
REPORT: Taken from JOSE Aguirre for continuation of care.
[2017-06-11] MEDS: SOD FERRIC GLUC COMPLEX/SUC 125 MG in NS 100 ML IV SCH (15:23)
--- NOTE | 2017-06-11 19:20 | NUR ---
ENDORSEMENT Patient endorsed by outgoing RN Charanjit. Report given.
[2017-06-12] VITALS (20 sets, daily range): BP systolic 96–139
[2017-06-12] MEDS: D5/0.45 NS 1,000 ML IV SCH ×2 (00:03→10:24)
[2017-06-12] MEDS: HYDROmorphone 1 MG INJ. 1 MG/ML AMPUL IVP PRN ×2 (00:17→21:34)
--- NOTE | 2017-06-12 04:00 | NUR ---
Dopamine titrated down to 8mcg/kg/min at this time.
--- NOTE | 2017-06-12 05:45 | NUR ---
Dopamine titrated down to 6mcg/kg/min at this time.
[2017-06-12] MEDS: PIPERACILLIN/TAZO 2.25G/DEX-IS 50 ML IV SCH ×5 (06:22→23:49)
[2017-06-12] MEDS: metroNIDAZOLE 250 mg/NS 50 ML IV SCH (06:23)
[2017-06-12] MEDS: DOPamine PREMIX 250 ML IV PRN (06:45)
[2017-06-12 06:46] LABS: BASOPHILS % (AUTO) 0.2 % (0.0-2.0); EOSINOPHILS # (AUTO) 0.4 K/uL (0.0-0.4); EOSINOPHILS % (AUTO) 3.3 % (0.0-4.0); HEMATOCRIT 25.9 % (36-48); HEMOGLOBIN 8.5 g/dL (12.0-16.0); LYMPHOCYTES # (AUTO) 1.5 K/uL (1.0-5.5); MEAN CORPUSCULAR HEMOGLOBIN 30 pg (27-31); MEAN CORPUSCULAR HGB CONC 33 % (32-36); MEAN CORPUSCULAR VOLUME 92 fL (79.0-98.0); MONOCYTES # (AUTO) 0.8 K/uL (0.0-1.0); MONOCYTES % (AUTO) 5.9 % (1.7-9.3); NEUTROPHILS # (AUTO) 10.1 K/uL (1.8-7.7); NEUTROPHILS % (AUTO) 78.6 % (40.0-70.0); PLATELET COUNT (AUTO) 243 K/uL (130-430); RED BLOOD CELL COUNT(AUTO) 2.82 MIL/uL (4.2-6.2); RED CELL DISTRIBUTION WIDTH 13.8 % (9.0-15.0); WHITE BLOOD COUNT (AUTO) 12.8 K/uL (4.8-10.8)
[2017-06-12 06:49] LABS: ALANINE AMINOTRANSFERASE 61 U/L (12-78); ANION GAP 10 (5-15); ASPARTATE AMINOTRANSFERASE 17 U/L (10-37); CHLORIDE 113 mmol/L (98-107); CREATININE 2.78 mg/dL (0.55-1.30); GLUCOSE 165 mg/dL (70-99); LIPASE 810 U/L (73-393); POTASSIUM 3.8 mmol/L (3.5-5.1); SODIUM SERUM 140 mmol/L (136-145); TOTAL BILIRUBIN 0.4 mg/dL (0.0-1.0); UREA NITROGEN, BLOOD 33 mg/dL (8-21)
--- NOTE | 2017-06-12 07:35 | NUR ---
AM Assessment Pt asleep, arousable, no distress noted, no pain per pt. Respirations even and unlabored on 2L O2 via NC. Skin warm and dry. PICC in ARMIN intact, patent with D5 1/2 NS at 100 ml/hr, and on dopamine drip 6 mcg/kg/min. Lilly in place draining yellow urine. Heart sounds regular, SR on monitor, HR 60s. Adventitious lung sounds. Bowel sounds present, abdomen distended. SCDs in place bilaterally, heels elevated with pillow. Bed in lowest position. Call light in reach. Will continue to monitor.
[2017-06-12] MEDS: PANTOPRAZOLE SODIUM 40 MG/VIAL (PROTONIX) IVP SCH ×2 (08:55→20:51)
--- NOTE | 2017-06-12 10:00 | NUR ---
CHG BATH/LINEN CHANGE/REPOSITION PT AWAKE, NO S/S OF ACUTE DISTRESS OR COMPLAINT OF PAIN AT THIS TIME, PT HAD BM. PT GIVEN PARTIAL BED BATH AND CHG BATH, LINEN AND GOWN CHANGED, PT REPOSITIONED TO LEFT SIDE, TOLERATED WELL, NASAL CANULA IN PLACE, THOMAS CATHETER IN PLACE AND DRAINING TO GRAVITY, CALL LIGHT PLACED WITHIN REACH, FAMILY AT BEDSIDE. WILL CONTINUE TO MONITOR
[2017-06-12 12:07] LABS: LIVER-KIDNEY MICROSOMAL AB 1.6 Units (0.0-20.0)
--- NOTE | 2017-06-12 12:32 | NUR ---
Dietitian Recommendations * Recommend continuing clear liquid diet per MD * Consider advance diet if/when medically appropriate LP, RD Please see Nutrition Assessment for details.
--- NOTE | 2017-06-12 13:15 | NUR ---
Dr. Simental at bedside with patient and family.
--- NOTE | 2017-06-12 13:56 | NUR ---
consult for dr. chavez called spoke to mark anthony dialed [phone]
--- NOTE | 2017-06-12 14:00 | NUR ---
Dr. Villagran at bedside with patient and family.
[2017-06-12] MEDS: SOD FERRIC GLUC COMPLEX/SUC 125 MG in NS 100 ML IV SCH (14:12)
--- NOTE | 2017-06-12 14:41 | NUR ---
Patient Round Pt states no distress or pain at this time. Had large loose BM. Provided nadine care and linen change. Repositioned pt. Bed in lowest position. Call light in reach.
--- NOTE | 2017-06-12 15:25 | NUR ---
Dr. Tamayo at bedside with patient and family.
--- NOTE | 2017-06-12 15:40 | NUR ---
Dr. Alvarado at bedside with pt and family.
--- NOTE | 2017-06-12 16:34 | NUR ---
Dr. Blum at bedside with pt and family.
--- NOTE | 2017-06-12 17:50 | NUR ---
Patient Round Patient states no pain or distress. Patient provided with dinner tray with eats with minimal assist. Also informed patient and family of MD orders to transfer to tele.
[2017-06-12] MEDS: SODIUM BICARBONATE 8.4% JECT 50 MEQ in D5/0.45 NS 1,000 ML IV SCH (18:14)
--- NOTE | 2017-06-12 18:50 | NUR ---
Transfer to [facility] Pt transfer to room 122A via continuous monitoring and O2. Pt tolerated well. Situated pt to room. Chart, belongings, and meds sent with pt. Pt also requested and assisted to bed jarvis for BM. Endorsed plan of care to Willem GARCIA via SBAR tool and bedside round including instructions to have pt gradually improve mobility.
--- NOTE | 2017-06-12 20:00 | NUR ---
Rounds Received patient lying in bed resting, denies of any pain, no acute distress noted. IV site checked intact and patent, IVF infusing well. Instructed patient to call nurse when getting out of bed, call light within reach. x4 Family at the bedside.
[2017-06-12] MEDS: INSULIN REGULAR, HUMAN 100 UNITS/ML, 10 ML VIAL (novoLIN R) SUBCUT PRN (21:20)
--- NOTE | 2017-06-12 22:09 | NUR ---
Rounds Patient resting quietly. pain medication given earlier with effective result noted. will continue to monitor. call light within reach.
--- NOTE | 2017-06-13 | NUR ---
Rounds Patient resting quietly, call light within reach.
--- NOTE | 2017-06-13 02:14 | NUR ---
Rounds Patient resting quietly, call light within reach.
[2017-06-13 04:00] VITALS: BP_SYST 131
--- NOTE | 2017-06-13 04:00 | NUR ---
Rounds Patient resting quietly, call light within reach. Repositioned to side with pillow support.
[2017-06-13] MEDS: PIPERACILLIN/TAZO 2.25G/DEX-IS 50 ML IV SCH ×3 (05:28→17:45)
[2017-06-13] MEDS: SODIUM BICARBONATE 8.4% JECT 50 MEQ in D5/0.45 NS 1,000 ML IV SCH ×2 (05:28→12:38)
[2017-06-13] MEDS: INSULIN REGULAR, HUMAN 100 UNITS/ML, 10 ML VIAL (novoLIN R) SUBCUT PRN ×2 (05:50→17:45)
--- NOTE | 2017-06-13 06:17 | NUR ---
Closing notes Patient slept most of the night, no other changes noted on patient current condition. Patient NPO after midnight. B/P this morning 139/62.
[2017-06-13 06:36] LABS: BASOPHILS # (AUTO) 0.1 K/uL (0.0-0.2); BASOPHILS % (AUTO) 0.4 % (0.0-2.0); EOSINOPHILS # (AUTO) 0.4 K/uL (0.0-0.4); MEAN CORPUSCULAR HEMOGLOBIN 31 pg (27-31); MEAN CORPUSCULAR HGB CONC 33 % (32-36); MEAN CORPUSCULAR VOLUME 92 fL (79.0-98.0)
[2017-06-13 06:48] LABS: EOSINOPHILS % (AUTO) 2.8 % (0.0-4.0); HEMATOCRIT 25.2 % (36-48); HEMOGLOBIN 8.4 g/dL (12.0-16.0); LYMPHOCYTES # (AUTO) 1.9 K/uL (1.0-5.5); LYMPHOCYTES % (AUTO) 13.8 % (20.5-51.5); MONOCYTES % (AUTO) 7.2 % (1.7-9.3); NEUTROPHILS # (AUTO) 10.5 K/uL (1.8-7.7); NEUTROPHILS % (AUTO) 75.8 % (40.0-70.0); PLATELET COUNT (AUTO) 220 K/uL (130-430); RED BLOOD CELL COUNT(AUTO) 2.74 MIL/uL (4.2-6.2); WHITE BLOOD COUNT (AUTO) 13.9 K/uL (4.8-10.8)
[2017-06-13 07:04] LABS: ALANINE AMINOTRANSFERASE 52 U/L (12-78); ANION GAP 7 (5-15); ASPARTATE AMINOTRANSFERASE 46 U/L (10-37); BILIRUBIN,DIRECT 0.1 mg/dL (0.0-0.3); CHLORIDE 117 mmol/L (98-107); CREATININE 2.94 mg/dL (0.55-1.30); GLUCOSE 125 mg/dL (70-99); LIPASE 1318 U/L (73-393); SODIUM SERUM 143 mmol/L (136-145); TOTAL BILIRUBIN 0.4 mg/dL (0.0-1.0); UREA NITROGEN, BLOOD 30 mg/dL (8-21)
[2017-06-13 08:15] VITALS: BP_SYST 130
--- NOTE | 2017-06-13 08:15 | NUR ---
Opening Shift Note Pt resting in bed no s/s of sob, as complaint of dull aching stomach and reports pain as 1/10. Pt dissatisfied with NPO status but no other complaints. Lilly is patent and draining to gravity, PICC line infusing, safety & fall precautions in place with bed at the lowest position, bed alarm on and call light within reach.
[2017-06-13] MEDS: EPOETIN ALFA 3,000 UNITS/ML VIAL SUBCUT SCH (09:00)
[2017-06-13] MEDS: PANTOPRAZOLE SODIUM 40 MG/VIAL (PROTONIX) IVP SCH ×2 (09:17→20:54)
--- NOTE | 2017-06-13 10:05 | NUR ---
Rounding Note Pt resting with family at bedside. No s/s of sob, c/o mild epigastric discomfort and pt inquired about when she will be able to go to procedure so she can eat. PICC line patent and infusing, tubing changed due to repeated air interruptions. MRI anticipates having an opening for her in the afternoon for her MRI MRCP. Safety precautions in place with the bed left at the lowest position with the bed alarm on and call light within reach.
--- NOTE | 2017-06-13 10:38 | NUR ---
Patient off floor Pt to MRI for MRI MRCP. Pt stable.
[2017-06-13 11:55] VITALS: BP_SYST 133
--- NOTE | 2017-06-13 13:05 | NUR ---
Pt resting with family at bedside, IV patent and infusing, galvez catheter patent and draining to gravity, O2 delivered via NC. Pt has no C/O pain or SOB but states that she is hungry, will check with Dr. Villagran re NPO status or advancement. Bed left in lowest position, with bed alarm on and call light within reach.
--- NOTE | 2017-06-13 14:15 | NUR ---
Diet Advancement Pt diet advanced to Clear liquids
[2017-06-13] MEDS: SOD FERRIC GLUC COMPLEX/SUC 125 MG in NS 100 ML IV SCH (14:26)
--- NOTE | 2017-06-13 15:24 | NUR ---
Pt Returns Pt returned to unit from MRI, bedding and gown changed, galvez catheter inspected and appears intact despite leakage when off floor, peritoneal care provided, IV fluids infusing, SCDs reconnected, vital signs stable, blood glucose check completed, bed left in lowest position with bed alarm on and call light within reach. Family returned to bedside. Addendum: 06/13/17 at 1528 by Catherine Porter RN This note should have been documetned at [id number]
--- NOTE | 2017-06-13 15:31 | NUR ---
Rounding Pt resting with family at bedside. No complaints of SOB and pain at 1/10 depending on position. She was provided with apple juice and jello earlier by AUDIO VISUAL ARTS DIRECTOR which she has tolerated well. Bed left at lowest position with bed alarm on and family at bedside. Call light within reach.
[2017-06-13 15:32] VITALS: BP_SYST 123
--- NOTE | 2017-06-13 15:38 | NUR ---
CONSULT SURGICAL CHOLECYSTITIS DR DUNN [phone] S/W [facility] OFFICE @ 2149
--- NOTE | 2017-06-13 16:27 | NUR ---
Dr Oconnor/Pt visit Dr Oconnor visited with the patient regarding possible surgery. After viewing labs and speaking with the patient and her daughter, he would like to wait for the Pt H&H improve to "closer to 10" and pt INR to be stable.
--- NOTE | 2017-06-13 18:39 | NUR ---
Closing Note Pt eating dinner with family at bedside. Pt is ALOC x4, with no S/S of SOB and only mild abdominal discomfort, no C/O pain. PICC line is patent and infusing in both ports. Earlier flushes were completed but with no return from either port. Lilly catheter draining to gravity. Safety and fall precautions in place with bed at lowest position, bed alarm on and call light within reach.
--- NOTE | 2017-06-13 19:35 | NUR ---
INITIAL ROUNDS Received report from warehouse worker 2nd shift. Pt sleeping comfortably in no apparent distress. Family at bedside spoke to RN stating pt has been short of breath for over a day and sounds like she is wheezing. Upon assessment of pt, pt did have upper airway fine wheezing and pts hands noted to be swollen. Pt speaking in short sentences and obviously short of breath at rest. Pt states she does feel short of breath. Informed family and pt that a call will be put into MD to notify of changes. Encouraged pt to use call pedro. Call pedro left within reach.
[2017-06-13 20:00] VITALS: BP_SYST 129
--- NOTE | 2017-06-13 20:00 | NUR ---
DR GIBBONS ORDERS Spoke to Dr. Gibbons and updated on pts current condition. Per Dr. Gibbons, discontinue IV fluids, give Lasix 40mg IVP x 1 now and order prn albuterol breathing treatments q 2hrs prn. Read back orders to MD and inputted in [employer]. Called RT for breathing treatment.
[2017-06-13] MEDS ORDERED: FUROSEMIDE 40 MG/4 ML VIAL IVP ONE (20:15)
[2017-06-13] MEDS ORDERED: IPRATROPIUM/ALBUTEROL SULFATE 3 ML AMPUL.NEB INH PRN (20:15)
--- NOTE | 2017-06-13 20:15 | NUR ---
ROUNDS Pt sleeping with mild respiratory distress. Repositioned in high fowlers and informed of new orders from MD to help with her shortness of breath. Left call pedro within reach. Fall precautions in place. Will continue to monitor.
--- NOTE | 2017-06-13 20:30 | NUR ---
ROUNDS Pt states feeling better after breathing treatment. Repositioned pt for comfort. Administered Lasix IV 40mg slow IVP. Fall precautions in place. Call pedro within reach. Will continue to monitor.
--- NOTE | 2017-06-13 22:00 | NUR ---
ROUNDS Pt resting comfortably with eyes closed. Breathing easy and unlabored. Urine output noted at 300mls of clear yellow urine. Call pedro within reach. Fall precautions in place. Will continue to monitor.
--- NOTE | 2017-06-13 23:45 | NUR ---
ROUNDS Pt moaning. Awoke pt, pt slightly disoriented. Checked orientation pt able to state name, place and birthdate. Pt states her arm was sore but better now. Repositioned for comfort. Reoriented pt to room and call pedro use. Left call pedro within reach. Will continue to monitor.
[2017-06-14] VITALS (7 sets, daily range): BP systolic 107–171
[2017-06-14] MEDS: PIPERACILLIN/TAZO 2.25G/DEX-IS 50 ML IV SCH ×4 (01:24→17:34)
--- NOTE | 2017-06-14 01:54 | NUR ---
ROUNDS Pt sleeping soundly in no apparent distress. Breathing easy and unlabored. Fall precautions in place. Call pedro within reach. Will continue to monitor.
[2017-06-14] MEDS: ACETAMINOPHEN/CODEINE 300 MG-30 MG TABLET PO PRN ×2 (02:25→21:19)
--- NOTE | 2017-06-14 02:37 | NUR ---
ROUNDS/PAIN Pt c/o generalized body pain 02/08. Administered Tylenol #3 per md orders. Gave water and repositioned up in bed on left side. Pt expressed gratitude and went to sleep. Fall precautions in place. Call pedro within reach. Will continue to monitor.
--- NOTE | 2017-06-14 03:19 | NUR ---
ROUNDS pt sleeping soundly. Breathing easy and unlabored. Call pedro within reach. Fall precautions in place. Will continue to monitor.
--- NOTE | 2017-06-14 05:22 | NUR ---
ROUNDS Pt sleeping soundly in no apparent distress. Fall precautions in place. will continue to monitor.
--- NOTE | 2017-06-14 06:30 | NUR ---
CLOSING NOTE Pt resting with eyes closed in no apparent distress. Blood sugar 78. Breathing easy and unlabored lasix and breathing treatments effective. Will continue to monitor pt and endorse care to dayshift nurse.
[2017-06-14 06:35] LABS: EOSINOPHILS # (AUTO) 0.4 K/uL (0.0-0.4); EOSINOPHILS % (AUTO) 2.4 % (0.0-4.0); HEMATOCRIT 24.2 % (36-48); HEMOGLOBIN 8.1 g/dL (12.0-16.0); LYMPHOCYTES # (AUTO) 2.1 K/uL (1.0-5.5); LYMPHOCYTES % (AUTO) 13.6 % (20.5-51.5); MEAN CORPUSCULAR HEMOGLOBIN 31 pg (27-31); MEAN CORPUSCULAR HGB CONC 33 % (32-36); MEAN CORPUSCULAR VOLUME 92 fL (79.0-98.0); MONOCYTES # (AUTO) 0.7 K/uL (0.0-1.0); MONOCYTES % (AUTO) 4.5 % (1.7-9.3); NEUTROPHILS # (AUTO) 12.5 K/uL (1.8-7.7); NEUTROPHILS % (AUTO) 79.5 % (40.0-70.0); PLATELET COUNT (AUTO) 228 K/uL (130-430); RED BLOOD CELL COUNT(AUTO) 2.64 MIL/uL (4.2-6.2); RED CELL DISTRIBUTION WIDTH 14.2 % (9.0-15.0); WHITE BLOOD COUNT (AUTO) 15.7 K/uL (4.8-10.8)
[2017-06-14 06:56] LABS: ALANINE AMINOTRANSFERASE 47 U/L (12-78); ALBUMIN 1.9 g/dL (3.4-4.8); ANION GAP 8 (5-15); ASPARTATE AMINOTRANSFERASE 38 U/L (10-37); CALCIUM 7.9 mg/dL (8.4-11.0); CHLORIDE 117 mmol/L (98-107); CREATININE 3.08 mg/dL (0.55-1.30); GLUCOSE 90 mg/dL (70-99); POTASSIUM 3.6 mmol/L (3.5-5.1); SODIUM SERUM 143 mmol/L (136-145); TOTAL BILIRUBIN 0.3 mg/dL (0.0-1.0); UREA NITROGEN, BLOOD 30 mg/dL (8-21)
--- NOTE | 2017-06-14 07:45 | NUR ---
AM ROUNDS: PATIENT ON THE BED,LYING ON HER SIDE.ON 2L/NC,GOOD SATURATION. CHINESE SPEAKING LADY. RIGHT UPPER ARM PICC LINE,DRESSING CLEAN AND DRY. CALL LIGHT WITH IN REACH.BED AT LOWEST POSITION AND LOCKED. NO DISTRESS THIS TIME. SR ON THE RHYTHM.
[2017-06-14] MEDS: PANTOPRAZOLE SODIUM 40 MG/VIAL (PROTONIX) IVP SCH ×2 (09:52→21:03)
--- NOTE | 2017-06-14 09:59 | NUR ---
INCENTIVE SPIROMETRY: PATIENT TRIED IS UP TO 500ML ONLY X 8.ENCOURAGE MORE AND FEELS TIRED THIS TIME. DAUGHTER AT BEDSIDE.
[2017-06-14] MEDS: INSULIN REGULAR, HUMAN 100 UNITS/ML, 10 ML VIAL (novoLIN R) SUBCUT PRN ×2 (11:33→21:13)
--- NOTE | 2017-06-14 11:34 | NUR ---
BLOOD SUGAR: BLOOD UMTMQ=727QC/DL,REGULAR INSULIN 2 UNITS SUBQ GIVEN PER SLIDING SCALE.
--- NOTE | 2017-06-14 12:39 | NUR ---
meal: patient sitting on the chair,having lunch. daughter at bedside.stable.
[2017-06-14] MEDS: SOD FERRIC GLUC COMPLEX/SUC 125 MG in NS 100 ML IV SCH (14:00)
--- NOTE | 2017-06-14 14:30 | NUR ---
rounds: patient sitting on the chair. physical therapist working with the patient. family at bedside.
--- NOTE | 2017-06-14 15:00 | NUR ---
PHYSICAL THERAPY CO-SIGN The Physical Therapy Progress Notes documented by Delivery Aide have been reviewed. I CONCUR W/OPERATING ROOM SPECIALIST NOTE;Pt IS SHOWING PROGRESS WITH POC, CONT PER TX PLAN Reviewed/Co-Signed by: Edna Glover PT Documentation Done by: VINNY VIRK OPERATING ROOM SPECIALIST Addendum: 06/14/17 at 1501 by Edna Glover PT Amended: Links added.
--- NOTE | 2017-06-14 17:36 | NUR ---
blood sugar: blood sugar taken,no insulin coverage per sliding scale.
[2017-06-14] MEDS: 0.45% NACL 1,000 ML IV SCH (18:15)
--- NOTE | 2017-06-14 18:33 | NUR ---
paged: called dr browne and left message c/o exchange dusty.
--- NOTE | 2017-06-14 18:34 | NUR ---
surgeon rounds: with orders for abdominal ultrasound by dr keane ,keep patient hold dinner for the test.family informed at bedside.
--- NOTE | 2017-06-14 18:41 | NUR ---
closing notes: stable. resting. family at bedside.ivf on going at right upper arm intact.call light with in reach.bed at lowest position and locked.hold dinner for now until abdominal us is done,family aware.
--- NOTE | 2017-06-14 18:45 | NUR ---
paged: spoke with dr browne ,patient for cardiac clearance for surgery,type and x-match 2 units of prbc,i unit transfused and 2nd unit prbc on hold.
--- NOTE | 2017-06-14 19:50 | NUR ---
Initial Notes Patient alert and oriented, able to make needs known, mostly pashto speaking. Denies pain at this time. No SOB noted, on 2L/NC. Denies nausea/vomiting at this time. IV site patent, flushes well, infusing fluids as ordered. Patient repositioned in bed, recently cleaned with help of VENDING ENTERPRISES SUPERVISOR. Lilly catheter in place, output noted. Family at bedside. Goal of pain management, GI stability and safety this shift. Safety precautions maintained. Call light within reach. Will continue to monitor.
--- NOTE | 2017-06-14 22:00 | NUR ---
Notes 1st unit of blood ongoing, patient is resting in bed, denies pain or discomfort noted. No SOB noted. IV site patent. Call light within reach. Will continue to monitor.
[2017-06-15] VITALS (7 sets, daily range): BP systolic 95–159
[2017-06-15] MEDS: 0.45% NACL 1,000 ML IV SCH ×2 (00:08→07:30)
[2017-06-15] MEDS: PIPERACILLIN/TAZO 2.25G/DEX-IS 50 ML IV SCH ×4 (00:08→17:13)
--- NOTE | 2017-06-15 00:15 | NUR ---
Notes Patient sleeping at this time. No SOB noted. Afebrile. IV site patent, flushes well, infusing fluids as ordered, pt tolerated blood transfusion well, no allergic reaction. Patient repositioned in bed. Call light within reach. Will continue to monitor.
--- NOTE | 2017-06-15 02:05 | NUR ---
Notes Patient denies pain or discomfort noted. No SOB noted. IV site patent. Call light within reach. Will continue to monitor.
--- NOTE | 2017-06-15 04:04 | NUR ---
Notes Patient sleeping at this time. No SOB noted. Afebrile. IV site patent, flushes well, infusing fluids as ordered. Patient repositioned in bed. Call light within reach. Will continue to monitor.
[2017-06-15 06:36] LABS: BASOPHILS % (AUTO) 0.1 % (0.0-2.0); EOSINOPHILS # (AUTO) 0.5 K/uL (0.0-0.4); HEMATOCRIT 28.9 % (36-48); HEMOGLOBIN 9.6 g/dL (12.0-16.0); LYMPHOCYTES # (AUTO) 2.2 K/uL (1.0-5.5); LYMPHOCYTES % (AUTO) 13.1 % (20.5-51.5); MEAN CORPUSCULAR HEMOGLOBIN 30 pg (27-31); MEAN CORPUSCULAR HGB CONC 33 % (32-36); MEAN CORPUSCULAR VOLUME 91 fL (79.0-98.0); MONOCYTES # (AUTO) 0.6 K/uL (0.0-1.0); MONOCYTES % (AUTO) 3.8 % (1.7-9.3); NEUTROPHILS # (AUTO) 13.7 K/uL (1.8-7.7); PLATELET COUNT (AUTO) 247 K/uL (130-430); RED BLOOD CELL COUNT(AUTO) 3.16 MIL/uL (4.2-6.2); RED CELL DISTRIBUTION WIDTH 14.5 % (9.0-15.0)
--- NOTE | 2017-06-15 06:48 | NUR ---
Closing Notes Denies pain at this time. No SOB noted, on 2L/NC. Denies nausea/vomiting at this time. IV site patent, flushes well, infusing fluids as ordered. Patient repositioned in bed. Goal of pain management, GI stability and safety met. Call light within reach. Will continue to monitor.
[2017-06-15 07:02] LABS: ANION GAP 10 (5-15); CALCIUM 7.9 mg/dL (8.4-11.0); CHLORIDE 111 mmol/L (98-107); GLUCOSE 108 mg/dL (70-99); POTASSIUM 3.5 mmol/L (3.5-5.1); SODIUM SERUM 140 mmol/L (136-145); UREA NITROGEN, BLOOD 34 mg/dL (8-21)
[2017-06-15 07:23] LABS: ALANINE AMINOTRANSFERASE 47 U/L (12-78); ALBUMIN 2.3 g/dL (3.4-4.8); ASPARTATE AMINOTRANSFERASE 25 U/L (10-37); LIPASE 957 U/L (73-393); TOTAL BILIRUBIN 0.4 mg/dL (0.0-1.0)
--- NOTE | 2017-06-15 07:24 | NUR ---
OPENING NOTE RECEIVED REPORT FROM DISTRIBUTION FIELD TECHNICIAN NURSE. PATIENT RESTING COMFORTABLY, NO COMPLAINTS OF PAIN AT THIS TIME. PATIENT HAS NO NOTABLE SIGNS OF DISTRESS AT THIS TIME. PATIENT HAS EDEMA TO BILATERAL UPPER EXTREMITIES, FAMILY IS AT BEDSIDE FOR SAFETY. PATIENTS BED IN LOWEST POSITION, CALL LIGHT WITHIN REACH, AND SIDE RAILS ARE UP FOR SAFETY PRECAUTIONS. PATIENTS IV IS RUNNING PER MD ORDERS. PATIENT IS FALL RISK PATIENT IS INDEPENDENT WITH ADLS. WILL CONTINUE TO MONITOR PATIENT FOR CHANGES IN STATUS.
[2017-06-15] MEDS: PANTOPRAZOLE SODIUM 40 MG/VIAL (PROTONIX) IVP SCH ×2 (08:49→21:20)
[2017-06-15] MEDS: EPOETIN ALFA 3,000 UNITS/ML VIAL SUBCUT SCH (08:50)
--- NOTE | 2017-06-15 09:58 | NUR ---
NOTE PATIENT HAS BEEN LETHARGIC, MORE THAN USUAL, PER PATIENT FAMILY. FOR GOOD MEASURE, CHECKED CHART, PATIENT WAS GIVEN TYLENOL WITH CODIENE DURING PM SHIFT. PATIENTS BLOOD GLUCOSE WAS CHECKED, 99. PATIENT OPENS EYES TO VERBAL STIMULI. PATIENT HAS NO CONFUSION NOTED, JUST INCREASED TIREDNESS. WILL CONTINUE TO MONITOR AND FOLLOW UP.
--- NOTE | 2017-06-15 10:17 | NUR ---
1000 NOTE PATIENT RESTING COMFORTABLY, NO COMPLAINTS OF PAIN AT THIS TIME. PATIENT HAS NO NOTABLE SIGNS OF DISTRESS AT THIS TIME. PATIENT HAS EDEMA TO BILATERAL UPPER EXTREMITIES, FAMILY IS AT BEDSIDE FOR SAFETY. PATIENTS BED IN LOWEST POSITION, CALL LIGHT WITHIN REACH, AND SIDE RAILS ARE UP FOR SAFETY PRECAUTIONS. PATIENTS IV IS RUNNING PER MD ORDERS. PATIENT IS FALL RISK PATIENT IS INDEPENDENT WITH ADLS. WILL CONTINUE TO MONITOR PATIENT FOR CHANGES IN STATUS. PATIENT HAS Q2 TURNS, AND HEELS FLOATED ON PILLOW SUPPORT.
[2017-06-15] MEDS ORDERED: NACL 0.9% 1,000 ML IV SCH (10:45)
--- NOTE | 2017-06-15 12:16 | NUR ---
1200 NOTE PATIENT RESTING COMFORTABLY, NO COMPLAINTS OF PAIN AT THIS TIME. PATIENT HAS NO NOTABLE SIGNS OF DISTRESS AT THIS TIME. PATIENT HAS EDEMA TO BILATERAL UPPER EXTREMITIES, FAMILY IS AT BEDSIDE FOR SAFETY. PATIENT TO GO TO SURGERY FOR LAP ANNAMARIA, WILL WORK ON CHECKLIST, AND GROUP FITNESS MANAGER NOTIFIED OF CHG BATH. PATIENTS BED IN LOWEST POSITION, CALL LIGHT WITHIN REACH, AND SIDE RAILS ARE UP FOR SAFETY PRECAUTIONS. PATIENTS IV IS RUNNING PER MD ORDERS. PATIENT IS FALL RISK PATIENT IS INDEPENDENT WITH ADLS. WILL CONTINUE TO MONITOR PATIENT FOR CHANGES IN STATUS. PATIENT HAS Q2 TURNS, AND HEELS FLOATED ON PILLOW SUPPORT.
--- NOTE | 2017-06-15 13:59 | NUR ---
Pulmo consult called: for Dr. Johnson, regarding pulmonary clearance, ordered by Dr. Villagran, spoke with Jil.
--- NOTE | 2017-06-15 14:12 | NUR ---
AVERY SCALE EVALUATION: Patient evaluated for a low Avery score of 13. Patient was awake, alert, oriented, mostly Honduran speaking, and received in a Remington bed with an Atmos-Air 9000 mattress. Patient is unable to turn in bed independently. Skin is fair (-); buttocks have redness from IAD. Recommend reposition patient side to side only every 2 hours with pillow support and off-load pressure areas with pillows for pressure re-distribution. Elevate, off-load and float bilateral heels with pillows. Use moisture barrier cream on buttocks and other moisture susceptible areas QID and as needed for soiling. Perform skin care and monitor skin integrity Q shift. Place patient on a low air-loss mattress.
--- NOTE | 2017-06-15 14:32 | NUR ---
NOTE SURGERY POSTPONED, DR. CARDOSO CONSULT PLACED. CHEST XR TO BE DONE.
--- NOTE | 2017-06-15 14:36 | NUR ---
PT NOTES CHART REVIEWED AND CLEARED FOR PT BY RN. PATIENT IN SEMIFOWLER POSITION RESTING WITH FAMILY AT BEDSIDE. PATIENT AND FAMILY ASKS IF POSSIBLE TO HOLD OFF THERAPY D/T SURGERY LATER TODAY. ENCOURAGED CONTINUED HEP PARTICIPATION IN THERAPY AND DEMONSTRATED FEW EXERCISES OF LE. MUNGUIA AND CALL LIGHT IN REACH, NO OTHER NEEDS EXPRESSED BY PATIENT OR FAMILY, RN MADE AWARE. WILL FOLLOW UP PATIENT TOMORROW IF POSSIBLE. PVEx1 Addendum: 06/15/17 at 1535 by Edna Glover PT PHYSICAL THERAPY CO-SIGN The Physical Therapy Progress Notes documented by Cloth Inspector have been reviewed. I CONCUR W/AUTOMATIC THREAD WINDER NOTE; HOLD PT DUE TO SX, WILL REQUIRE NEW PT ORDER POST OP Reviewed/Co-Signed by: Edna Glover PT Documentation Done by: VINNY VIRK PTA
[2017-06-15] MEDS: SOD FERRIC GLUC COMPLEX/SUC 125 MG in NS 100 ML IV SCH (14:42)
[2017-06-15] MEDS ORDERED: FUROSEMIDE 40 MG/4 ML VIAL IVP ONE (15:00)
[2017-06-15] MEDS ORDERED: IPRATROPIUM BROM 0.5 MG/2.5 ML VIAL.NEB (ATROVENT) INH PRN (15:00)
[2017-06-15] MEDS ORDERED: ALBUTEROL SULFATE 0.083% 2.5 MG/3 ML VIAL.NEB INH PRN (15:00)
[2017-06-15] MEDS ORDERED: 0.45% NACL 1,000 ML IV SCH (15:15)
[2017-06-15] MEDS ORDERED: FUROSEMIDE 20 MG/2 ML VIAL IVP ONE (15:30)
[2017-06-15] MEDS ORDERED: SODIUM BICARBONATE 8.4% JECT 50 MEQ/50 ML SYRINGE IV ONE (15:45)
--- NOTE | 2017-06-15 16:18 | NUR ---
Nutrition F/U Admitting Diagnosis Acute pancreatitis Reviewed Pertinent Medical/Surgical Hx Medical Record Daughter Primary RN Medical History Comment: DM, HTN, obesity, recurrent pancreatitis per MD notes 06/14/17 notes: Acute pancreatitis, Septic shock, Sepsis, Acalculous cholecystitis w/ GB sludge, S/P Hypovolemic shock and Septic shock, Anemia of chronic illness, VENANCIO on CKD/Vasomotor nephropathy Subjective Information Pt was seen yesterday after being referred by nursing staff for food preference. RD noted in Comput[employer]. Pt seen resting in bed, w/ daughter at bedside during time of RD visit. Per daughter, pt tolerated food served last night. Per RN, pt is for surgery today, on NPO. Kidneys are decreasing in function. Per EMR, abd is soft and non-distended w/ active bowel sounds. I/O: 1625/1000 +625ml, IV total intake 750ml per 12 hrs. Pt is not yet meeting optimal nutritional needs. Pt is not appropriate for nutrition education. Current Diet Order/Nutrition Support NPO since breakfast 06/15/17 Patient/Significant Other Able To Verbalize Education Provided Not Indicated Pertinent Medications D5%/NaCl IV at 100 ml/hr (408 kcal/day), zofran, ferric sodium gluconate complex, piperacillin/tazobactam Pertinent Labs BG 108H, POC BG 101H, BUN 34H, CRE 3.5H, ALB 2.3L, ALP 131H, WBC 17H, RBC 3.16 L, H/H 9.6L/28.9L, Calcium 7.9 L, Lipase 957 H Height (Feet) 5 feet Height (Inches) 0.00 inches Weight (Pounds) 176 pounds Weight (Calculated Kilograms) 79.854489 kilograms Patient Weight 79.832 kg Body Mass Index 34.37 kg/m2 Usual Weight 180 lbs %UBW 98 %IBW 178 [place]/Adjusted Body Weight IBW: 100 lb, 45 kg. Adj IBW (obesity): 119 lb, 54 kg Recent Weight Change No Weight Status Obese Gastrointestinal Symptoms None Last BM Jun 15, 2017 x1 Difficulty With: Chewing Usual Diet At Home Regular Skin Integrity Comment: Avery scale: 19; per nursing notes: R upper arm:bruise; 2+ pitting edema of bilateral arm; 2+ pitting edema of bilateral leg Current % PO Poor (25-49%) NEW Estimated Energy Expenditure (kcals/day) 3114-7054 kcal/day (BEE x 1.2-1.5 IBW for Sepsis) Estimated Protein Required (g/day) 45 gm/day (1 gm/kg IBW for geriatric maintenance) NEW Estimated Fluid Required (l/day) per MD (VENANCIO) Problem/Etiology/Signs/Symptoms Inadequate nutritional intakes related to maintenance as evidenced by clear liquid diet status x4 days, and poor PO intake records. *ongoing Increased nutritional needs related to metabolic demands as evidenced by elevated WBC and estimated nutritional needs for sepsis. Expected Outcomes/Goals - Monitor advancement of diet, appetite, and PO intakes w/ goal of pt meeting at least 50% of estimated nutritional needs, labs trending WNL, normal GI function, and skin integrity/wt maintenance Dietitian Recommendations * Recommend continuing NPO per MD * Consider advance diet if/when medically appropriate Follow Up High Risk: F/U in 2-3days
--- NOTE | 2017-06-15 16:20 | NUR ---
NOTE PATIENT HAD ABG PERFORMED PER REQUEST OF DR. CARDOSO, PATIENTS PH WAS 7.1. BICARB X2 AMPS GIVEN VIA PICC. PATIENT HAS MAINTENANCE FLUID ORDERED WITH BICARB TO BE ADDED TO D5W. WILL FOLLOW UP WITH PHARMACY. LASIX WAS ORDERED, OKAY TO GIVEN IF SBP IS >100.
--- NOTE | 2017-06-15 17:25 | NUR ---
NOTE DR. GIBBONS AND DR. CARDOSO MET WITH PATIENT AND FAMILY MEMBERS TO DISCUSS OPTIONS FOR SURGERY OF LAP ANNAMARIA. POSTPONED AT THIS TIME. PATIENTS FAMILY AWARE. ORDER WAS PLACED TO TRANSFER TO HIGHER LEVEL OF CARE PER DR. GIBBONS.
--- NOTE | 2017-06-15 17:35 | NUR ---
NOTE LATE ADMINISTRATION OF IV FLUIDS WITH SODIUM BICARB ADDED RELATED TO UNAVAILABLE FROM PHARMACY.
[2017-06-15] MEDS: SODIUM BICARBONATE 8.4% JECT 100 MEQ in D5W 1,000 ML IV SCH (17:47)
--- NOTE | 2017-06-15 18:19 | NUR ---
DR. MARTIN CALL SPOKE WITH JANIA FROM DR. JUNIOR ANSWERING SERVICE. CALL PLACED REGARDING CDIFF ORDERS.
--- NOTE | 2017-06-15 18:24 | NUR ---
ABG RESULTS PER DR. CARDOSO, WOULD LIKE A REPEAT ABG PERFORMED 2 HOURS AFTER PATIENT WAS GIVEN 2 AMPS BICARB VIA IVP IN PICC. RESULTS CALLED TO RN BY BRENT FROM RESPIRATORY THERAPY. DR. GIBBONS WAS AT NURSES STATION. GIVEN INFORMATION REGARDING RESULTS. ORDER FOR BICARB PO GIVEN.
--- NOTE | 2017-06-15 18:30 | NUR ---
DR. MARTIN RETURN CALL SPOKE WITH AVEL STINSON TO PROCEED WITH CDIFF TESTING. APPROVAL. CALLED LAB TO NOTIFY
--- NOTE | 2017-06-15 19:25 | NUR ---
CHANGE OF SHIFT: pt. awake, alert, namibian speaking. still eating dinner. with generalized edema , both upper and lower extremities. O2 @ 2l/nc. call light within reach.
--- NOTE | 2017-06-15 20:30 | NUR ---
NOTES; due hs care done by DENTIST, wants to use bedpan, complete care done and repositioned. cardiac pattern on sinus rhythm. needs attended.
[2017-06-15] MEDS: SODIUM BICARBONATE 650 MG TABLET PO SCH (21:29)
[2017-06-15] MEDS: INSULIN REGULAR, HUMAN 100 UNITS/ML, 10 ML VIAL (novoLIN R) SUBCUT PRN (21:32)
[2017-06-15] MEDS: ALBUTEROL SULFATE 0.083% 2.5 MG/3 ML VIAL.NEB INH SCH (21:32)
[2017-06-15] MEDS: IPRATROPIUM BROM 0.5 MG/2.5 ML VIAL.NEB (ATROVENT) INH SCH (21:33)
--- NOTE | 2017-06-15 22:00 | NUR ---
NOTES: due breathing treatment given by RT, no acute distress. IV infusing via PICC line on rt. arm.
--- NOTE | 2017-06-16 00:30 | NUR ---
NOTES: pt. sleeping when checked. IVF infusing with due IV antibiotic to be given.
[2017-06-16] MEDS: PIPERACILLIN/TAZO 2.25G/DEX-IS 50 ML IV SCH ×4 (01:00→17:37)
[2017-06-16] MEDS: ALBUTEROL SULFATE 0.083% 2.5 MG/3 ML VIAL.NEB INH SCH ×4 (01:32→19:00)
[2017-06-16] MEDS: IPRATROPIUM BROM 0.5 MG/2.5 ML VIAL.NEB (ATROVENT) INH SCH ×4 (01:33→21:35)
[2017-06-16 02:08] VITALS: BP_SYST 132
--- NOTE | 2017-06-16 03:00 | NUR ---
NOTES: continue to monitor, pt. still sleeping.
[2017-06-16 03:34] VITALS: BP_SYST 131
--- NOTE | 2017-06-16 05:35 | NUR ---
NOTES: condition unchanged, cardiac pattern remains sinus rhythm.
--- NOTE | 2017-06-16 06:40 | NUR ---
CLOSING NOTES; PT. STILL ASLEEP , NO COMPLAINTS NOTED, O2 ON.IVF PATENT. CXR DONE. FOR FURTHER CARE AND OBSERVATION.
--- NOTE | 2017-06-16 07:20 | NUR ---
ENDORSED TO INCOMING SHIFT WITH NURSE BOWEN. FALL PRECAUTIONS. THOMAS CATHETER INTACT.
--- NOTE | 2017-06-16 08:01 | NUR ---
OPENING NOTE RECEIVED PATIENT REPORT FROM GM VIDEO NURSE. PATIENT RESTING COMFORTABLY, NO COMPLAINTS OF PAIN AT THIS TIME. PATIENT HAS NO NOTABLE SIGNS OF DISTRESS AT THIS TIME. PATIENT HAD ABG COMPLETED BY RESPIRATORY THERAPY. PATIENTS BED IN LOWEST POSITION, CALL LIGHT WITHIN REACH, AND SIDE RAILS ARE UP FOR SAFETY MEASURES. PATIENTS IV RUNNING PER MD ORDERS, SCDS APPLIED FOR DVT PROPHYLAXIS, AND THOMAS CATHETER DRAINING TO GRAVITY. PATIENT HAS BEDSIDE COMMODE AVAILABLE FOR ELIMINATION NEEDS. WILL CONTINUE TO MONITOR PATIENT FOR CHANGES IN STATUS.
[2017-06-16] MEDS: SODIUM BICARBONATE 650 MG TABLET PO SCH ×3 (10:00→22:11)
[2017-06-16] MEDS: PANTOPRAZOLE SODIUM 40 MG/VIAL (PROTONIX) IVP SCH ×2 (10:00→22:11)
[2017-06-16] MEDS: SODIUM BICARBONATE 8.4% JECT 100 MEQ in D5W 1,000 ML IV SCH (10:01)
--- NOTE | 2017-06-16 11:01 | NUR ---
NOTE SPOKE WITH DR. GARCIA, ASKED REGARDING LABS. 2 PHLEBOTOMISTS TRIED TO DRAW BLOOD FROM PATIENT, WITH NO SUCCESS. OKAY TO DRAW LABS FROM PICC LINE.
[2017-06-16] MEDS ORDERED: FUROSEMIDE 20 MG/2 ML VIAL IVP ONE (11:30)
[2017-06-16 11:45] LABS: BASOPHILS % (AUTO) 0.3 % (0.0-2.0); EOSINOPHILS # (AUTO) 0.3 K/uL (0.0-0.4); EOSINOPHILS % (AUTO) 2.1 % (0.0-4.0); HEMATOCRIT 26.5 % (36-48); HEMOGLOBIN 8.7 g/dL (12.0-16.0); LYMPHOCYTES # (AUTO) 1.4 K/uL (1.0-5.5); LYMPHOCYTES % (AUTO) 10.7 % (20.5-51.5); MEAN CORPUSCULAR HEMOGLOBIN 30 pg (27-31); MEAN CORPUSCULAR HGB CONC 33 % (32-36); MEAN CORPUSCULAR VOLUME 91 fL (79.0-98.0); MONOCYTES # (AUTO) 0.8 K/uL (0.0-1.0); MONOCYTES % (AUTO) 5.9 % (1.7-9.3); NEUTROPHILS # (AUTO) 10.7 K/uL (1.8-7.7); PLATELET COUNT (AUTO) 246 K/uL (130-430); WHITE BLOOD COUNT (AUTO) 13.2 K/uL (4.8-10.8)
[2017-06-16 11:51] LABS: ANION GAP 11 (5-15); CALCIUM 7.5 mg/dL (8.4-11.0); CHLORIDE 107 mmol/L (98-107); CREATININE 4.03 mg/dL (0.55-1.30); GLUCOSE 281 mg/dL (70-99); SODIUM SERUM 141 mmol/L (136-145); UREA NITROGEN, BLOOD 37 mg/dL (8-21)
[2017-06-16 12:06] LABS: ALANINE AMINOTRANSFERASE 33 U/L (12-78); ASPARTATE AMINOTRANSFERASE 17 U/L (10-37); FREE T4 (FREE THYROXINE) 0.9 ng/dl (0.8-1.5); PHOSPHORUS 4.1 mg/dL (2.7-4.5); THYROID STIMULATING HORMONE 2.99 uIu/mL (0.36-3.74); TOTAL BILIRUBIN 0.2 mg/dL (0.0-1.0)
[2017-06-16 12:07] VITALS: BP_SYST 142
--- NOTE | 2017-06-16 12:30 | NUR ---
DC Planning: Transfer to higher level of care: >> Contacted Juan Mota, s/w Maryjane, service center supervisor tel# [phone], fax# [phone] and faxed pt's info requesting the transfer. Addendum: 06/16/17 at 1540 by Jorge Vargas RN >> late entry: [address] Villagran to call dr. Mullins cell # [phone] at [facility] for md- report for possible acceptance. Addendum: 06/16/17 at 1550 by Jorge Vargas RN >> 1422 pm. Per Maryjane, the pt. is accepted by dr. Mullins. She stated there is no Tele bed now but will try to get one this evening. She will call nursing station when bed available. May use any ambulance for transfer, auth # [id number] per irma Larsen at [facility]. Ambulance co. can call Suzie to verify at contact # [phone]-- JOSE Torres made aware.
--- NOTE | 2017-06-16 12:42 | NUR ---
SOB/CHEST PRESSURE/ANXIETY PATIENT HAS CHIEF COMPLAINT OF SHORTNESS OF BREATH, CHEST PRESSURE, FEELING LIKE SOMETHING IS STUCK IN THROAT. PATIENT ALSO HAS ANXIETY. VITAL SIGNS 99% 2L O2 VIA NC; 71 HR; AND BP OF 147/65. PATIENT IS TO HAVE RESPIRATORY TREATMENT. LASIX GIVEN PER MD ORDERS.
--- NOTE | 2017-06-16 12:46 | NUR ---
PAGED PAGED WILIAN QUEVEDO AT [phone] SPOKE WITH RAÚL.
[2017-06-16] MEDS: INSULIN REGULAR, HUMAN 100 UNITS/ML, 10 ML VIAL (novoLIN R) SUBCUT PRN ×2 (12:54→22:06)
--- NOTE | 2017-06-16 15:30 | NUR ---
DISCHARGE PLANNING Ordered Radiology CD. Placed transportation packet in nurses station.
--- NOTE | 2017-06-16 15:45 | NUR ---
NOTE NEW ONSET A-FIB/A-FLUTTER ON MONITOR, ON AND OFF, FOR APPROXIMATELY [address]IP PRINTED FOR DR. GIBBONS'S REVIEW. PATIENT TO BE GIVEN CARDIZEM PER MD ORDERS. WILL CONTINUE TO MONITOR PATIENT.
--- NOTE | 2017-06-16 16:01 | NUR ---
>> Informed Pt's son, Parish to the possible transferring the pt. to [facility] tonight when bed available. Parish agreed with the POC and transfer to [facility].
--- NOTE | 2017-06-16 16:15 | NUR ---
NOTE PATIENT TO TRANSFERRED TO [facility], AUTHORIZATION FOR AMBULANCE ALREADY COMPLETED BY EXPERT WITNESS, NO AMBULANCE ON WILL CALL. ENDORSE TO PROBE OPERATOR. THERE IS NO BED AVAILABLE AT THIS TIME. PATIENT TO BE TRANSFERRED UNDER THE CARE OF DR. BECERRA.
[2017-06-16 16:36] VITALS: BP_SYST 123
[2017-06-16] MEDS ORDERED: POTASSIUM CHLORIDE 20 MEQ TAB.PRT.SR PO ONE (16:45)
--- NOTE | 2017-06-16 16:48 | NUR ---
CARDIZEM CLARIFICATION OKAY TO GIVE 1645 DOSE OF CARDIZEM. HOLD 1800 DOSE IF HR <70.
[2017-06-16] MEDS: DILTIAZEM HCL 60 MG TABLET PO SCH ×2 (17:12→18:00)
--- NOTE | 2017-06-16 19:52 | NUR ---
CLOSING NOTE ENDORSED PATIENT REPORT TO BUSINESS SERVICES OFFICER NURSE. PATIENT RESTING COMFORTABLY, NO COMPLAINTS OF PAIN AT THIS TIME. PATIENT HAS NO NOTABLE SIGNS OF DISTRESS AT THIS TIME. FAMILY IS AT BEDSIDE FOR COMFORT. PATIENTS BED IN LOWEST POSITION, CALL LIGHT WITHIN REACH, AND SIDE RAILS ARE UP FOR SAFETY MEASURES. PATIENTS IV SALINE LOCKED PER MD ORDERS, SCDS APPLIED FOR DVT PROPHYLAXIS, AND THOMAS CATHETER DRAINING TO GRAVITY. PATIENT HAS BEDSIDE COMMODE AVAILABLE FOR ELIMINATION NEEDS. WILL CONTINUE TO MONITOR PATIENT FOR CHANGES IN STATUS. PATIENT TO BE TRANSFERRED TO [facility], AWAITING BED. ENDORSED TO PM SHIFT THAT AMBULANCE IS AUTHORIZED WHEN BED AVAILABLE. NO AMBULANCE IS ON WILL CALL.
--- NOTE | 2017-06-16 20:10 | NUR ---
INITIAL NOTES: PATIENT IN BED AWAKE ,ORIENTED X4. MANY FAMILIES AT BEDSIDE.TEACHINGS GIVEN TO THEM DAUGHTER INTERPRETS TO PATIENT WHO IS [place] SPEAKING WITH UNDERSTANDING.VITAL SIGNS STABLE. SALINE LOCK PICC LINE TO RT. UPPER PATENT. FLUSHED WITH BLOOD RETURN. DENIES CHEST PAIN NOR SOB ,HAS SLIGHT EXERTIONAL DYSPNEA WHEN UP TO COMMODE WITH ASSIST RO HAVE BOWEL MOVEMENT. THOMAS DRAINING WITH WITH CLEAR YELLOW URINE GODD AMT. THOMAS CARE DONE. SINUS RHYTHM. HR 60-70/MIN. CONTROLLED A FIB.HAS O2 PER N/C 2 LITERS. CALL LIGHT WITHIN REACH. BED IN LOW POSITION.
--- NOTE | 2017-06-16 21:45 | NUR ---
ALL DUE MEDS GIVEN WITHOUT DIFFICULTY.
--- NOTE | 2017-06-16 22:30 | NUR ---
PATIENT RESTING QUITELY WITH EASY BREATHING. SON AT BEDSIDE.
--- NOTE | 2017-06-16 23:10 | NUR ---
RECEIVED A CALL FROM [facility].SMALL STOCK FACER DONALD FROM [facility] REPORTING BED IS AVAILABLE FOR THIS PATIENT.
--- NOTE | 2017-06-16 23:25 | NUR ---
INFORMED SON OF AVAILABILITY OF BED IN [facility] WITH UNDERSTANDING.
--- NOTE | 2017-06-17 00:05 | NUR ---
[facility] STAFF HERE.
--- NOTE | 2017-06-17 00:09 | NUR ---
Arranged Ambulance ([facility]) Phone Number [phone] Spoke with Jimy.
[2017-06-17 00:13] VITALS: BP_SYST 131
--- NOTE | 2017-06-17 00:30 | NUR ---
ASSISTED TO BEDSIDE COMMODE TO TO HAVE BM. JUST PASSES A LOT OF GAS. NO BM/ STEPHANIE CARE DONE.
--- NOTE | 2017-06-17 00:35 | NUR ---
BREATHING TREATMENTS GIVEN BY RT AND ZOZYN IVPB GIVEN. CARDIZEM NOT GIVEN NO MEDS.
--- NOTE | 2017-06-17 00:40 | NUR ---
REPORT GIVEN TO JOSE DAVIES AT [facility] ,TO YASIR Love.
[2017-06-17] MEDS: PIPERACILLIN/TAZO 2.25G/DEX-IS 50 ML IV SCH (00:41)
--- NOTE | 2017-06-17 01:00 | NUR ---
REPORT GIVEN TO MR. DAIN BROUSSARD [facility] EMT.
--- NOTE | 2017-06-17 01:25 | NUR ---
DISCHARGE/TRANSFER: PATIENT DISCHARGE FROM [facility] ,TRANSFERRED TO [facility] FOR HIGHER LEVEL OF CARE VIA [facility] ,ACCOMPANIED BY SON AND AMBULANCE STAFF ,AWAKE ORIENTED X4.ALL PERTINENT D/C PAPERS WITH CD ,CURRENT MEDS, ORDERS ,PICC LINE ON RT. UPPER ARMS ,THOMAS CATHETER, DRAINING CLEAR YELLOW URINE, WITH OXYGEN 2 LITERS PER NASAL CANNULA.SON SIGNED CONSENT FOR TRANSFER.VISHAL Epstein
[2017-06-17 01:29] VITALS: BP_SYST 128
== END 2017-06-17 01:30 | disposition short-term general hospital (02) | DRG 720 ==
LOC: SED 13:56 → STU 16:47 → SIC 17:44 → STU 06-12 18:58 → UNDODISIN 06-16 14:25
PROVIDERS: ADMIT Internal Medicine; ATTEND Internal Medicine
PROC: 02HV33Z Insertion of Infusion Device into Superior Vena Cava, Percutaneous Approach (ICD-10-PCS; principal; 2017-06-08)
PROC: B548ZZA Ultrasonography of Superior Vena Cava, Guidance (ICD-10-PCS; 2017-06-08)
PROC: 30233N1 Transfusion of Nonautologous Red Blood Cells into Peripheral Vein, Percutaneous Approach (ICD-10-PCS; 2017-06-14)
DX: A41.9 Sepsis, unspecified organism (principal); N17.0 Acute kidney failure with tubular necrosis; R65.21 Severe sepsis with septic shock; I50.33 Acute on chronic diastolic (congestive) heart failure; K85.90 Acute pancreatitis without necrosis or infection, unspecified; E87.2 Acidosis; J18.9 Pneumonia, unspecified organism; E11.22 Type 2 diabetes mellitus with diabetic chronic kidney disease; I13.0 Hypertensive heart and chronic kidney disease with heart failure and stage 1 through stage 4 chronic kidney disease, or unspecified chronic kidney disease; K86.1 Other chronic pancreatitis; E66.01 Morbid (severe) obesity due to excess calories; K81.9 Cholecystitis, unspecified; D63.8 Anemia in other chronic diseases classified elsewhere; E11.40 Type 2 diabetes mellitus with diabetic neuropathy, unspecified; N18.3 Chronic kidney disease, stage 3 (moderate); I48.0 Paroxysmal atrial fibrillation; E78.00 Pure hypercholesterolemia, unspecified; I49.1 Atrial premature depolarization; K82.8 Other specified diseases of gallbladder; Z87.891 Personal history of nicotine dependence; Z79.84 Long term (current) use of oral hypoglycemic drugs; Z79.82 Long term (current) use of aspirin; Z79.899 Other long term (current) drug therapy; Z86.73 Personal history of transient ischemic attack (TIA), and cerebral infarction without residual deficits; Z68.34 Body mass index [BMI] 34.0-34.9, adult; Z90.710 Acquired absence of both cervix and uterus
CPT/HCPCS: 36415; 36600; 71010; 74181; 76700-TC; 78226; 80053; 80061; 80076; 81000-TC; 82103; 82105; 82248-TC; 82390; 82728; 82803-TC; 82962; 83036; 83516; 83540-TC; 83550-TC; 83605; 83690-TC; 83880; 84100-TC; 84439; 84443-TC; 84484; 85007; 85025; 85027; 85610-TC; 85730-TC; 86376; 86886; 86900; 86901; 86920; 87040-TC; 87081; 87230-TC; 93005; 93306; 94640; 94760; 96361; 96365; 96375; 96376; 97110-GP; 97116-GP; 97530-GP; 99285; A9537; C1751; C9113; J0696; J0885; J1170; J1265; J1815; J1940; J2405; J2543; J2765; J2916; J3370; J3490; J7030; J7050; J7060; P9021